=== PATIENT | male | born 1945 | race Caucasian/White ===

== ENCOUNTER 2017-11-20 07:34 | Inpatient (IN) ==
--- NOTE | 2017-11-20 08:09 | ED ---
HPI General Chief complaint: Skin/Abscess/Foreign Body Stated complaint: skin Time Seen by Provider: 11/20/17 07:51 Source: patient and old records reviewed Mode of arrival: ambulatory Limitations: no limitations History of Present Illness HPI narrative: 71-year-old male presents to the emergency department for evaluation of "cellulitis to my buttock". Patient states that yesterday, he noticed an area of erythema to his left buttock. He states it is warm to palpation. Reports fever of 100 this morning. Patient states that he had the same issue in September. He was treated with Bactrim and Keflex and the symptoms resolved. Patient states he has a history of a left hip replacement. He he denies any other symptoms or complaints. He does report being diabetic. Moderate severity. Related Data Home Medications Medication Instructions Recorded Confirmed Unable to Obtain Home Meds 11/20/17 11/20/17 Allergies Allergy/AdvReac Type Severity Reaction Status Date / Time adhesive AdvReac Severe SKIN Verified 11/20/17 08:22 BECOMES IRRITATED AND SCARS Review of Systems ROS: all other systems reviewed are negative [facility] Social History Social History Substance History: No History of Abuse Second Hand Smoke Exposure: No Smoking Status: Never smoker How Often Do You Have a Drink Containing Alcohol: Never Recent Travel in [facility] within the Last 8 Weeks: No Recent Out of Country Travel within the Last 8 Weeks: No Exam Narrative Exam Narrative: GENERAL: Well-nourished, well-developed male patient, afebrile. SKIN: Focused skin assessment warm/dry. Patient has area of erythema to the left buttock that crosses over to the right buttock that measures approximately 19 cm x 27 cm that is warm to palpation. No induration or fluctuance noted. Patient has scar from previous left hip replacement with erythema is as well. HEAD: Normocephalic. Atraumatic. EYES: No scleral icterus. No injection or drainage. NECK: Supple, trachea midline. No JVD or lymphadenopathy. CARDIOVASCULAR: Regular rate and rhythm without murmurs, gallops, or rubs. Left pedal pulse is 2+ peer RESPIRATORY: Breath sounds equal bilaterally. No accessory muscle use. Lung sounds are clear to auscultation. GASTROINTESTINAL: Abdomen soft, non-tender, nondistended. MUSCULOSKELETAL: No cyanosis, or edema. Patient has full range of motion left hip. No significant point tenderness over left hip. BACK: No obvious deformity. Course Initial Documented Vital Signs Temperature 97.8 F 11/20/17 07:37 Pulse Rate 96 H 11/20/17 07:37 Respiratory Rate 20 11/20/17 07:37 Blood Pressure 161/68 H 11/20/17 07:37 Pulse Oximetry 96 11/20/17 07:37 Last Documented Vital Signs Temperature 97.8 F 11/20/17 07:37 Pulse Rate 77 11/20/17 09:00 Respiratory Rate 16 11/20/17 09:00 Blood Pressure 142/64 H 11/20/17 09:00 Pulse Oximetry 98 11/20/17 09:00 Medical Decision Making MDM Narrative Medical decision making narrative: 71-year-old male presents to the emergency department for an area of cellulitis to his left buttock that he noticed yesterday. On exam, area of erythema is significant, 19 cm x 27 cm. He is diabetic. IV access obtained. CBC, CMP, lactic acid, blood cultures x2 are ordered and pending. X-ray of the left hip with pelvis is ordered and pending. I do not suspect a septic joint. Patient has full range of motion of the left hip. CBC shows leukocytosis 23.0, neutrophil percentage 92.6. CMP shows slight hyperkalemia 5.2, but slight hemolysis is noted. BUN is 38, creatinine 1.95. Hyperglycemia of 229. Lactic acid is 1.9. X-ray of the left hip with pelvis shows no concerning osseous or soft tissue abnormality. Patient is given normal saline 1 L IV bolus, vancomycin 1 g IV, Zosyn 3.375 g IV. [facility] is paged for admission. Medical Screen Exam Complete: Yes Emergency Medical Condition: Yes Lab Data Result diagrams: 11/20/17 08:05 11/20/17 08:05 Lab Results 11/20/17 11/20/17 11/20/17 Range/Units 08:05 08:05 08:10 WBC 23.0 H (4.0-11.0) th/mm3 RBC 4.60 (4.50-5.90) mil/mm3 Hgb 14.4 (13.0-17.0) gm/dL Hct 41.9 (39.0-51.0) % MCV 90.9 (80.0-100.0) fL MCH 31.3 (27.0-34.0) pg MCHC 34.5 (32.0-36.0) % RDW 14.2 (11.6-17.2) % Plt Count 189 (150-450) th/mm3 MPV 8.1 (7.0-11.0) fL Neut % (Auto) 92.6 H (16.0-70.0) % Lymph % (Auto) 4.0 L (9.0-44.0) % [place] % (Auto) 3.2 (0.0-8.0) % Eos % (Auto) 0.0 (0.0-4.0) % Baso % (Auto) 0.2 (0.0-2.0) % Neut # (Auto) 21.3 H (1.8-7.7) th/mm3 Lymph # (Auto) 0.9 L (1.0-4.8) th/mm3 [place] # (Auto) 0.7 (0.0-0.9) th/mm3 Eos # (Auto) 0.0 (0.0-0.4) th/mm3 Baso # (Auto) 0.1 (0.0-0.2) th/mm3 WBC Differential . Differential Comment Auto diff final Sodium 139 (136-145) meq/L Potassium 5.2 H (3.5-5.1) meq/L Chloride 107 (98-107) meq/L Carbon Dioxide 22.4 (21.0-32.0) meq/L Anion Gap 10 (5-15) meq/L BUN 38 H (7-18) mg/dL Creatinine 1.95 H (0.60-1.30) mg/dL Estimated GFR 34 L (>89) mL/min Random Glucose 229 H (74-106) mg/dL Lactic Acid 1.9 (0.4-2.0) mmol/L Calcium 8.7 (8.5-10.1) mg/dL Total Bilirubin 0.5 (0.2-1.0) mg/dL AST 17 (15-37) U/L ALT 21 (12-78) U/L Alkaline Phosphatase 72 (45-117) U/L Total Protein 7.3 (6.4-8.2) g/dL Albumin 3.9 (3.4-5.0) g/dL Imaging Data Radiologist's impression: Hip X-Ray 11/20/17 08:04 CONCLUSION: Degenerative changes of the lumbar spine. Intact total left hip prosthesis. No concerning osseous or soft tissue abnormality. Discharge Plan Discharge Disposition Patient Disposition: 30 Still Patient Discharge Details Diagnosis: Cellulitis of buttock, left, Sepsis Physicians Team ED Provider: Vladimir Hansen ED Midlevel Provider: Tonya Presley Primary Care Provider: David Benitez Rxs /Orders / Referrals /Forms Prescriptions: No Action Unable to Obtain Home Meds RF: 0 Discharge Interventions Interventions: Vital Signs Last Done: 11/20/17 09:00 Status ED Status: With Doctor
[2017-11-20 08:32] LABS: Baso # (Auto) 0.1 th/mm3 (0.0-0.2); Baso % (Auto) 0.2 % (0.0-2.0); Hematocrit 41.9 % (39.0-51.0); Hemoglobin 14.4 gm/dL (13.0-17.0); Lymph # (Auto) 0.9 th/mm3 (1.0-4.8); Mean Corpuscular HGB Conc 34.5 % (32.0-36.0); Mean Corpuscular Hemoglobin 31.3 pg (27.0-34.0); Mean Corpuscular Volume 90.9 fL (80.0-100.0); Mean Platelet Volume 8.1 fL (7.0-11.0); Mono # (Auto) 0.7 th/mm3 (0.0-0.9); Mono % (Auto) 3.2 % (0.0-8.0); Neut # (Auto) 21.3 th/mm3 (1.8-7.7); Neut % (Auto) 92.6 % (16.0-70.0); Platelet Count 189 th/mm3 (150-450); Red Cell Distribution Width 14.2 % (11.6-17.2)
[2017-11-20] MEDS ORDERED: Piperacil/Tazo 3.375 GM Premix 50 ML IV.SIG ONE (08:43)
[2017-11-20] MEDS ORDERED: Sod Chloride 0.9% Inj 1,000 ML IV.SIG ONE (08:43)
[2017-11-20] MEDS ORDERED: Vancomycin Inj 1,000 MG in Sodium Chlor 0.9% Inj 250 ML IV.SIG ONE ×2 (08:43→13:00)
--- NOTE | 2017-11-20 08:54 | XR ---
EXAM DATE: 11/20/2017 8:04 AM EDT AGE/SEX: 71 years / Male INDICATIONS: Rash. Possible cellulitis. CLINICAL DATA: This is the patient's initial encounter. Patient reports that signs and symptoms have been present for 1 week and indicates a pain score of 6/10. MEDICAL/SURGICAL HISTORY: . Left buttocks swelling and redness. Previous cellulitis on left but tocks. . Left hip replacement. COMPARISON: . FINDINGS: 2 views of the pelvis demonstrate intact surgical hardware of the left hip, stable in appearance from prior exam. There has been removal of the cerclage wire. Osseous structures are intact without evide nce of fracture or demineralization. Degenerative disc changes within the lower lumbar spine. Soft ti ssues are unremarkable. CONCLUSION: Degenerative changes of the lumbar spine. Intact total left hip prosthesis. No concerning osseous or soft tissue abnormality. Electronically signed by: Ingrid Tena MD 11/20/2017 8:52 AM EDT
[2017-11-20 08:56] LABS: Albumin 3.9 g/dL (3.4-5.0); Anion Gap 10 meq/L (5-15); Aspartate Aminotransferase 17 U/L (15-37); Blood Urea Nitrogen 38 mg/dL (7-18); Calcium 8.7 mg/dL (8.5-10.1); Carbon Dioxide 22.4 meq/L (21.0-32.0); Chloride 107 meq/L (98-107); Glomerular Filtration Rate 34 mL/min (>89); Glucose,Random 229 mg/dL (74-106); Sodium 139 meq/L (136-145)
[2017-11-20 09:01] LABS: Alanine Aminotransferase 21 U/L (12-78); Alkaline Phosphatase 72 U/L (45-117); Total Protein 7.3 g/dL (6.4-8.2)
[2017-11-20 09:02] LABS: Potassium 5.2 meq/L (3.5-5.1)
[2017-11-20] MEDS ORDERED: Acetaminophen 325 MG Tablet PO PRN (09:43)
--- NOTE | 2017-11-20 10:14 | P.HP ---
<Jo De Anda W - Last Filed: 11/20/17 19:46> History of Present Illness Primary Care Physician: David Benitez MD Chief Complaint: "cellulitis on my butt" History of Present Illness: This is a 71-year-old male patient with past medical history which includes diabetes mellitus type 2, obstructive sleep apnea, hypertension, hemochromatosis , chronic kidney disease stage III, osteoporosis, obesity with history of bariatric surgery and GERD. Patient presented to the emergency department for evaluation of, "cellulitis of my buttocks." Patient states that yesterday, he noticed an area of erythema to his left buttock. He states it is warm to palpation. Reports fever of 100 this morning. Patient states that he had the same issue in September. He was treated with Bactrim and Keflex and the symptoms resolved. Patient states he has a history of a left hip replacement. He he denies any other symptoms or complaints. He does report being diabetic. Moderate severity. PMH: diabetes mellitus type 2, obstructive sleep apnea, hypertension, hemochromatosis , chronic kidney disease stage III, osteoporosis, obesity PSxH: Gastric sleeve 2012, left hip for hip replacement 2013 FMH: Mother had hypertension and CVA Father had Alzheimer's disease Brother has diabetes Social history: Patient is retired Denies EtOH use Former smoker has a [id number] history - Diagnosis (1) Cellulitis of buttock, left Inpatient Certification: I certify that the inpatient services were ordered in accordance with Medicare regulations governing the order. This includes certification that hospital inpatient services are reasonable and necessary and in the case of services not specified as inpatient-only under 42 CFR 419.22(n), that they are appropriately provided as inpatient services in accordance to with the 2-midnight benchmark under 43 CFR 412.3(e) Estimated Total Length of Stay (Days): 3 Plans for Post Hospital Care: Home Review of Systems All other systems reviewed negative except as stated in HPI PMFSH - History History Provided By: Patient - Tobacco History Second Hand Smoke Exposure: No Tobacco Use In Past 30 Days: No Smoking Status: Never smoker - Alcohol History How Often Do You Have a Drink Containing Alcohol: Never - Substance Use History Substance History: No History of Abuse - Travel History Recent Travel in the [place] Within the Last 8 Weeks: No Recent Travel Out of the Country Within the Last 8 Weeks: No - Immunization History Tetanus Immunization: Unsure Medications and Allergies Allergies Allergy/AdvReac Type Severity Reaction Status Date / Time adhesive AdvReac Severe SKIN Verified 11/20/17 08:22 BECOMES IRRITATED AND SCARS Home Medications Medication Instructions Recorded Confirmed Type diltiazem HCl 300 mg PO DAILY 11/20/17 11/20/17 History glipizide 5 mg PO BID 11/20/17 11/20/17 History ibuprofen 600 mg PO Q8HR PRN 11/20/17 11/20/17 History lisinopril 40 mg PO DAILY 11/20/17 11/20/17 History meloxicam [Mobic] 15 mg PO DAILY 11/20/17 11/20/17 History pantoprazole 40 mg PO DAILY 11/20/17 11/20/17 History tramadol 50 mg PO Q8HR PRN 11/20/17 11/20/17 History Active Medications: Active Medications Acetaminophen (Tylenol) 650 mg PO Q4H PRN PRN Reason: Temp > 100.4 Al Hydroxide/Mg Hydroxide (Milk Of [employer] Liq) 30 ml PO Q12H PRN PRN Reason: Mild Constipation Ondansetron HCl (Zofran Inj) 4 mg IV.PUSH Q6H PRN PRN Reason: NAUSEA OR VOMITING Senna/Docusate Sodium (-Colace) 1 tab PO BID JIMENA Exam Vital signs: Vital Signs 11/20/17 07:37 11/20/17 09:00 Temperature 97.8 F Pulse Rate 96 H 77 Respiratory Rate 20 16 Blood Pressure 161/68 H 142/64 H Pulse Oximetry 96 98 Intake & Output 11/19/17 11/20/17 11/20/17 18:59 06:59 18:59 Intake Total 50 / 50 Balance 50 / 50 Weight 116.573 kg Intake: IV 50 / 50 Zosyn 3.375 GM Premix 50 ML @ 50 / 50 100 mls/hr IV.SIG ONCE ONE Rx#: [id number] Narrative: GENERAL: This is a well-nourished, well-developed patient, in no apparent distress. SKIN: warm erythematous indurated area encompassing most of leg buttock without extension laterally or extension into gluteal fold CARDIOVASCULAR: Regular rate and rhythm RESPIRATORY: Clear to auscultation. Breath sounds equal bilaterally. GASTROINTESTINAL: Abdomen soft, non-tender, nondistended. Normal active bowel sounds MUSCULOSKELETAL: Extremities without clubbing, cyanosis, or edema. NEURO: Alert & Oriented x4 to person, place, time, situation. Moves all ext x4 Results - Labs CBC & Chem 7: 11/20/17 08:05 11/20/17 08:05 Labs: Laboratory Results - last 24 hr 11/20/17 11/20/17 11/20/17 08:05 08:05 08:10 WBC 23.0 H RBC 4.60 Hgb 14.4 Hct 41.9 MCV 90.9 MCH 31.3 MCHC 34.5 RDW 14.2 Plt Count 189 MPV 8.1 Neut % (Auto) 92.6 H Lymph % (Auto) 4.0 L [place] % (Auto) 3.2 Eos % (Auto) 0.0 Baso % (Auto) 0.2 Neut # (Auto) 21.3 H Lymph # (Auto) 0.9 L [place] # (Auto) 0.7 Eos # (Auto) 0.0 Baso # (Auto) 0.1 WBC Differential . Differential Comment Auto diff final Sodium 139 Potassium 5.2 H Chloride 107 Carbon Dioxide 22.4 Anion Gap 10 BUN 38 H Creatinine 1.95 H Estimated GFR 34 L Random Glucose 229 H Lactic Acid 1.9 Calcium 8.7 Total Bilirubin 0.5 AST 17 ALT 21 Alkaline Phosphatase 72 Total Protein 7.3 Albumin 3.9 - Imaging Impressions Hip X-Ray 11/20/17 08:04 CONCLUSION: Degenerative changes of the lumbar spine. Intact total left hip prosthesis. No concerning osseous or soft tissue abnormality. Caprini VTE Risk Assessment Caprini VTE Risk Assessment: No/Low Risk (score <= 1) Caprini Risk Assessment Model: Point Value = 1 Point Value = 2 Point Value = 3 Point Value = 5 Age 41-60 Minor surgery BMI > 25 kg/m2 Swollen legs Varicose veins or History of unexplained or recurrent spontaneous Oral contraceptives or hormone replacement Sepsis (< 1 month) Serious lung disease, including pneumonia (< 1 month) Abnormal pulmonary function Acute myocardial infarction Congestive heart failure (< 1 month) History of inflammatory bowel disease Medical patient at bed rest Age 61-74 Arthroscopic surgery Major open surgery (> 45 min) Laparoscopic surgery (> 45 min) Malignancy Confined to bed (> 72 hours) Immobilizing plaster cast Central venous access Age >= 75 History of VTE Family history of VTE Factor V Leiden Prothrombin [id number] Lupus anticoagulant Anticardiolipin antibodies Elevated serum homocysteine Heparin-induced thrombocytopenia Other congenital or acquired thrombophilia Stroke (< 1 month) Elective arthroplasty Hip, pelvis, or leg fracture Acute spinal cord injury (< 1 month) Prophylaxis Regimen: Total Risk Factor Score Risk Level Prophylaxis Regimen 0-1 Low Early ambulation 2 Moderate Order ONE of the following: *Sequential Compression Device (SCD) *Heparin 5000 units SQ BID 3-4 Higher Order ONE of the following medications: *Heparin 5000 units SQ TID *Enoxaparin/Lovenox 40 mg SQ daily (WT < 150 kg, CrCl > 30 mL/min) *Enoxaparin/Lovenox 30 mg SQ daily (WT < 150 kg, CrCl > 10-29 mL/min) *Enoxaparin/Lovenox 30 mg SQ BID (WT < 150 kg, CrCl > 30 mL/min) AND/OR *Sequential Compression Device (SCD) 5 or more Highest Order ONE of the following medications: *Heparin 5000 units SQ TID (Preferred with Epidurals) *Enoxaparin/Lovenox 40 mg SQ daily (WT < 150 kg, CrCl > 30 mL/min) *Enoxaparin/Lovenox 30 mg SQ daily (WT < 150 kg, CrCl > 10-29 mL/min) *Enoxaparin/Lovenox 30 mg SQ BID (WT < 150 kg, CrCl > 30 mL/min) AND *Sequential Compression Device (SCD) Assessment and Plan - Assessment (1) Cellulitis of buttock, left Code(s): L03.317 - Cellulitis of buttock Status: Acute Plan: This is a 71-year-old male patient with past medical history which includes diabetes mellitus type 2, obstructive sleep apnea, hypertension, hemochromatosis , chronic kidney disease stage III, osteoporosis, obesity with history of bariatric surgery and GERD. Patient presented to the emergency department for evaluation of, "cellulitis of my buttocks." Patient states that yesterday, he noticed an area of erythema to his left buttock. He states it is warm to palpation. Reports fever of 100 this morning. Patient states that he had the same issue in September. He was treated with Bactrim and Keflex and the symptoms resolved. Patient states he has a history of a left hip replacement. He he denies any other symptoms or complaints. He does report being diabetic. Moderate severity. Cellulitis left buttock WBC 23.0, LA 1.9 Hip X-Ray 11/20/17 Degenerative changes of the lumbar spine. Intact total left hip prosthesis. No concerning osseous or soft tissue abnormality. US soft tissue ordered and pending to R/O abscess Continue Zosyn and vancomycin with pharmacy to dose Diabetes mellitus type 2 Hold home Glipizide accu checks ACHS with SSI obstructive sleep apnea Patient may use home CPAP Hypertension Continue home Diltiazem 300mg daily and lisinopril 40 mg daily GERD Continue home pantoprazole Hemochromatosis Hx appears stable Hgb 14.4 Chronic kidney disease stage III Avoid nephrotoxic agents monitor labs DVT prophylaxis with SCDs <Sly Sheffield - Last Filed: 11/26/17 09:55> History of Present Illness Primary Care Physician: David Benitez MD - Diagnosis (1) Cellulitis of buttock, left Inpatient Certification: I certify that the inpatient services were ordered in accordance with Medicare regulations governing the order. This includes certification that hospital inpatient services are reasonable and necessary and in the case of services not specified as inpatient-only under 42 CFR 419.22(n), that they are appropriately provided as inpatient services in accordance to with the 2-midnight benchmark under 43 CFR 412.3(e) Medications and Allergies Active Medications: Active Medications Acetaminophen (Tylenol) 650 mg PO Q4H PRN PRN Reason: Temp > 100.4 Al Hydroxide/Mg Hydroxide (Milk Of Magnesia Liq) 30 ml PO Q12H PRN PRN Reason: Mild Constipation Dextrose (D50w Vial) 50 ml IV.PUSH UNSCH PRN PRN Reason: PER HYPOGLYCEMIA PROTOCOL Diltiazem HCl (Cardizem Cd 24hr) 300 mg PO DAILY [facility] Last Admin: 11/26/17 09:42 Dose: 300 mg Glucagon (Glucagon Inj) 1 mg OTHER PRN PRN PRN Reason: for Hypoglycemia Protocol Clindamycin/Sodium Chloride (Cleocin 900 Mg/Ns Premix) 900 mg in 50 mls @ 100 mls/hr IV.SIG Q8H [facility] Last Infusion: 11/26/17 06:09 Dose: Infused Insulin Aspart (Novolog Insulin [employer] Sugar Inj) 0 unit SQ ACHS JIMENA; Protocol Last Admin: 11/26/17 09:41 Dose: 2 unit Lactobacillus Acidophilus (Lactinex) 1 tab PO BID [facility] Last Admin: 10/18/18 20:33 Dose: 1 tab Lisinopril (Prinivil) 40 mg PO DAILY [facility] Last Admin: 11/26/17 09:42 Dose: 40 mg Ondansetron HCl (Zofran Inj) 4 mg IV.PUSH Q6H PRN PRN Reason: NAUSEA OR VOMITING Pantoprazole Sodium (Protonix) 40 mg PO DAILY [facility] Last Admin: 11/26/17 09:42 Dose: 40 mg Senna/Docusate Sodium (-Colace) 1 tab PO BID [facility] Last Admin: 11/26/17 09:42 Dose: 1 tab Tramadol HCl (Ultram) 50 mg PO Q8HR PRN PRN Reason: PAIN SCALE 1-10 Last Admin: 11/26/17 05:41 Dose: 50 mg Exam Vital signs: Vital Signs 11/25/17 11:32 11/25/17 16:00 11/25/17 19:52 Temperature 98 F 97.5 F L 97.5 F L Pulse Rate 59 L 56 L 56 L Respiratory Rate 18 17 17 Blood Pressure 167/77 H 160/69 H 156/71 H Pulse Oximetry 97 96 96 11/26/17 00:42 11/26/17 07:12 Temperature 97.8 F 97.2 F L Pulse Rate 54 L 58 L Respiratory Rate 17 16 Blood Pressure 123/72 145/69 H Pulse Oximetry 94 L 97 Intake & Output 11/25/17 11/26/17 11/26/17 18:59 06:59 18:59 Intake Total 2210 / 2210 700 / 700 Balance 2210 / 2210 700 / 700 Weight 115.9 kg Intake: IV 50 / 50 100 / 100 Cleocin 900 mg/NS Premix 900 mg 50 / 50 100 / 100 In 50 ml @ 100 mls/hr IV.SIG Q8H [facility] Rx#:[id number] Oral 2160 / 2160 600 / 600 Other: # Voids 10 3 Date of Last Bowel Movement 11/24/17 11/24/17 Results - Labs CBC & Chem 7: 11/25/17 11:29 11/22/17 03:37 Labs: Laboratory Results - last 24 hr 11/25/17 11/25/17 11/25/17 11:29 12:20 17:20 WBC 8.5 RBC 4.66 Hgb 14.7 Hct 42.7 MCV 91.7 MCH 31.6 MCHC 34.4 RDW 13.6 Plt Count 251 D MPV 8.3 Neut % (Auto) 65.3 Lymph % (Auto) 23.1 [place] % (Auto) 8.1 H Eos % (Auto) 3.1 Baso % (Auto) 0.4 Neut # (Auto) 5.6 Lymph # (Auto) 2.0 [place] # (Auto) 0.7 Eos # (Auto) 0.3 Baso # (Auto) 0.0 WBC Differential . Differential Comment Auto diff final POC Glucose 166 H 143 H 11/25/17 11/26/17 20:38 08:10 WBC RBC Hgb Hct MCV MCH MCHC RDW Plt Count MPV Neut % (Auto) Lymph % (Auto) [place] % (Auto) Eos % (Auto) Baso % (Auto) Neut # (Auto) Lymph # (Auto) [place] # (Auto) Eos # (Auto) Baso # (Auto) WBC Differential Differential Comment POC Glucose 147 H 158 H Caprini VTE Risk Assessment Caprini Risk Assessment Model: Point Value = 1 Point Value = 2 Point Value = 3 Point Value = 5 Age 41-60 Minor surgery BMI > 25 kg/m2 Swollen legs Varicose veins or History of unexplained or recurrent spontaneous Oral contraceptives or hormone replacement Sepsis (< 1 month) Serious lung disease, including pneumonia (< 1 month) Abnormal pulmonary function Acute myocardial infarction Congestive heart failure (< 1 month) History of inflammatory bowel disease Medical patient at bed rest Age 61-74 Arthroscopic surgery Major open surgery (> 45 min) Laparoscopic surgery (> 45 min) Malignancy Confined to bed (> 72 hours) Immobilizing plaster cast Central venous access Age >= 75 History of VTE Family history of VTE Factor V Leiden Prothrombin [id number] Lupus anticoagulant Anticardiolipin antibodies Elevated serum homocysteine Heparin-induced thrombocytopenia Other congenital or acquired thrombophilia Stroke (< 1 month) Elective arthroplasty Hip, pelvis, or leg fracture Acute spinal cord injury (< 1 month) Prophylaxis Regimen: Total Risk Factor Score Risk Level Prophylaxis Regimen 0-1 Low Early ambulation 2 Moderate Order ONE of the following: *Sequential Compression Device (SCD) *Heparin 5000 units SQ BID 3-4 Higher Order ONE of the following medications: *Heparin 5000 units SQ TID *Enoxaparin/Lovenox 40 mg SQ daily (WT < 150 kg, CrCl > 30 mL/min) *Enoxaparin/Lovenox 30 mg SQ daily (WT < 150 kg, CrCl > 10-29 mL/min) *Enoxaparin/Lovenox 30 mg SQ BID (WT < 150 kg, CrCl > 30 mL/min) AND/OR *Sequential Compression Device (SCD) 5 or more Highest Order ONE of the following medications: *Heparin 5000 units SQ TID (Preferred with Epidurals) *Enoxaparin/Lovenox 40 mg SQ daily (WT < 150 kg, CrCl > 30 mL/min) *Enoxaparin/Lovenox 30 mg SQ daily (WT < 150 kg, CrCl > 10-29 mL/min) *Enoxaparin/Lovenox 30 mg SQ BID (WT < 150 kg, CrCl > 30 mL/min) AND *Sequential Compression Device (SCD) Assessment and Plan - Assessment (1) Cellulitis of buttock, left Code(s): L03.317 - Cellulitis of buttock Status: Acute - Attending Attestation The exam, history, and the medical decision-making described in the above note were completed with the assistance of the mid-level provider. I reviewed and agree with the findings presented. I attest that I had a [id number] encounter with the patient on the same day, and personally performed and documented my assessment and findings in the medical record. Patient examined. Assessment and plan formulated with Jo De Anda PA-C. I agree with the above.
[2017-11-20] MEDS ORDERED: Vancomycin Consult Pharmacy OTHER PRN (12:13)
[2017-11-20] MEDS ORDERED: Dextrose 50% in Water 50 ML Vial IV.PUSH PRN (12:14)
[2017-11-20] MEDS: Piperacil/Tazo 2.25 GM Premix 50 ML IV.SIG SCH ×3 (15:26→21:36)
[2017-11-20] MEDS: Insulin NovoLOG Aspart Correctional Sugar Inj SQ SCH ×2 (18:00→21:36)
[2017-11-20] MEDS: Senna/Docusate Sodium 8.6/50 MG Tablet PO SCH ×2 (19:58→21:36)
--- NOTE | 2017-11-20 22:55 | US ---
EXAM DATE: 11/20/2017 12:00 AM EDT AGE/SEX: 71 years / Male INDICATIONS: Left buttocks redness and swelling. CLINICAL DATA: This is the patient's subsequent encounter. Patient reports that signs and symptoms h ave been present for 1 week and indicates a pain score of 3/10. MEDICAL/SURGICAL HISTORY: . Left buttocks redness and swelling. None. [place] [facility] [place]. . FINDINGS: Focused sonographic examination of the left gluteal region was performed in the area of redness and s welling. There is evidence of diffuse soft tissue edema and increased color Doppler flow. No organize d fluid collection is identified. CONCLUSION: Diffuse edema in the left gluteal region. No organized fluid collection identified. Electronically signed by: Lionel Zelaya MD 11/20/2017 10:53 PM EDT
[2017-11-21] MEDS: Piperacil/Tazo 2.25 GM Premix 50 ML IV.SIG SCH ×4 (02:33→20:29)
[2017-11-21 04:28] LABS: Baso % (Auto) 0.2 % (0.0-2.0); Eos % (Auto) 0.3 % (0.0-4.0); Hematocrit 36.6 % (39.0-51.0); Hemoglobin 12.3 gm/dL (13.0-17.0); Lymph # (Auto) 1.5 th/mm3 (1.0-4.8); Lymph % (Auto) 9.7 % (9.0-44.0); Mean Corpuscular HGB Conc 33.7 % (32.0-36.0); Mean Corpuscular Hemoglobin 31.2 pg (27.0-34.0); Mean Corpuscular Volume 92.7 fL (80.0-100.0); Mean Platelet Volume 8.5 fL (7.0-11.0); Mono # (Auto) 0.9 th/mm3 (0.0-0.9); Mono % (Auto) 5.9 % (0.0-8.0); Neut # (Auto) 13.3 th/mm3 (1.8-7.7); Neut % (Auto) 83.9 % (16.0-70.0); Platelet Count 160 th/mm3 (150-450); Red Blood Count 3.95 mil/mm3 (4.50-5.90); Red Cell Distribution Width 13.8 % (11.6-17.2); White Blood Count 15.8 th/mm3 (4.0-11.0)
[2017-11-21 05:01] LABS: Calcium 8.8 mg/dL (8.5-10.1); Carbon Dioxide 24.4 meq/L (21.0-32.0); Potassium 4.4 meq/L (3.5-5.1); Vancomycin,Random 7.4 Comment
[2017-11-21] MEDS ORDERED: Vancomycin Inj 1,750 MG in Sodium Chlor 0.9% Inj 500 ML IV.SIG SCH (09:00)
[2017-11-21] MEDS: Vancomycin Inj 1,500 MG in Sodium Chlor 0.9% Inj 500 ML IV.SIG SCH (09:09)
[2017-11-21] MEDS: Senna/Docusate Sodium 8.6/50 MG Tablet PO SCH ×2 (09:09→20:32)
[2017-11-21] MEDS: Lisinopril 20 MG Tablet PO SCH (09:09)
[2017-11-21] MEDS: Insulin NovoLOG Aspart Correctional Sugar Inj SQ SCH ×4 (09:09→20:29)
[2017-11-21] MEDS: dilTIAZem CD 300 MG Capsule PO SCH (12:53)
--- NOTE | 2017-11-21 17:22 | P.PNIM ---
Subjective Interval history: Follow up: cellulitis of the left buttock Patient reports that he is feeling better today Physical Exam Vital signs: Vital Signs 11/20/17 20:00 11/21/17 00:00 11/21/17 08:00 Temperature 98.1 F 99.1 F 98.5 F Pulse Rate 81 73 73 Respiratory Rate 18 18 16 Blood Pressure 135/69 134/63 119/56 L Pulse Oximetry 94 L 94 L 94 L 11/21/17 12:00 11/21/17 16:00 Temperature 98 F 98.1 F Pulse Rate 66 69 Respiratory Rate 16 16 Blood Pressure 127/58 L 149/65 H Pulse Oximetry 96 98 Intake & Output 11/20/17 11/21/17 11/21/17 18:59 06:59 18:59 Intake Total 2320 / 2320 470 / 470 565 / 565 Balance 2320 / 2320 470 / 470 565 / 565 Weight 116.573 kg 119.7 kg Intake: IV 1600 / 1600 50 / 50 565 / 565 Zosyn 2.25 GM Premix 50 ML @ 50 / 50 50 / 50 50 / 50 100 mls/hr IV.SIG Q6H [facility] Rx#: [id number] Zosyn 3.375 GM Premix 50 ML @ 50 / 50 100 mls/hr IV.SIG ONCE ONE Rx#: [id number] NS Inj 1,000 ML @ Wide Open IV. 1000 / 1000 SIG BOLUS ONE Rx#:[id number] Vancomycin Inj 1,000 MG In NS 500 / 500 Inj 250 ML @ 250 mls/hr IV.SIG ONCE ONE Rx#:[id number] Vancomycin Inj 1,500 MG In NS 515 / 515 Inj 500 ML @ 250 mls/hr IV.SIG Q24H [facility] Rx#:[id number] Oral 720 / 720 420 / 420 Other: # Voids 2 3 Date of Last Bowel Movement 11/20/17 # Bowel Movements 2 0 Narrative: GENERAL: This is a well-nourished, well-developed patient, in no apparent distress. SKIN: erythematous indurated area encompassing most of leg buttock without extension laterally or extension into gluteal fold - improved from yesterday less erythema today CARDIOVASCULAR: Regular rate and rhythm RESPIRATORY: Clear to auscultation. Breath sounds equal bilaterally. GASTROINTESTINAL: Abdomen soft, non-tender, nondistended. Normal active bowel sounds MUSCULOSKELETAL: Extremities without clubbing, cyanosis, or edema. NEURO: Alert & Oriented x4 to person, place, time, situation. Moves all ext x4 Results - Labs CBC & Chem 7: 11/25/17 11:29 11/22/17 03:37 Laboratory Results - last 24 hr 11/20/17 11/21/17 11/21/17 20:01 03:41 03:41 WBC 15.8 H RBC 3.95 L Hgb 12.3 L D Hct 36.6 L MCV 92.7 MCH 31.2 MCHC 33.7 RDW 13.8 Plt Count 160 MPV 8.5 Neut % (Auto) 83.9 H Lymph % (Auto) 9.7 [place] % (Auto) 5.9 Eos % (Auto) 0.3 Baso % (Auto) 0.2 Neut # (Auto) 13.3 H Lymph # (Auto) 1.5 [place] # (Auto) 0.9 Eos # (Auto) 0.0 Baso # (Auto) 0.0 WBC Differential . Differential Comment Auto diff final Sodium 138 Potassium 4.4 D Chloride 108 H Carbon Dioxide 24.4 Anion Gap 6 BUN 32 H Creatinine 1.75 H Estimated GFR 39 L POC Glucose 137 H Random Glucose 112 H D Calcium 8.8 Random Vancomycin 7.4 11/21/17 11/21/17 11/21/17 07:29 11:53 16:29 WBC RBC Hgb Hct MCV MCH MCHC RDW Plt Count MPV Neut % (Auto) Lymph % (Auto) [place] % (Auto) Eos % (Auto) Baso % (Auto) Neut # (Auto) Lymph # (Auto) [place] # (Auto) Eos # (Auto) Baso # (Auto) WBC Differential Differential Comment Sodium Potassium Chloride Carbon Dioxide Anion Gap BUN Creatinine Estimated GFR POC Glucose 134 H 123 H 130 H Random Glucose Calcium Random Vancomycin Microbiology 11/20/17 08:10 Blood - Peripheral Aerobic Blood Culture - Preliminary No growth in 1 day 11/20/17 08:10 Blood - Peripheral Anaerobic Blood Culture - Preliminary No growth in 1 day 11/20/17 08:05 Blood - Peripheral Aerobic Blood Culture - Preliminary No growth in 1 day 11/20/17 08:05 Blood - Peripheral Anaerobic Blood Culture - Preliminary No growth in 1 day - Imaging Impressions Soft Tissue Ultrasound 11/20/17 00:00 CONCLUSION: Diffuse edema in the left gluteal region. No organized fluid collection identified. Assessment and Plan - Assessment (1) Cellulitis of buttock, left Code(s): L03.317 - Cellulitis of buttock Status: Acute Plan: This is a 71-year-old male patient with past medical history which includes diabetes mellitus type 2, obstructive sleep apnea, hypertension, hemochromatosis , chronic kidney disease stage III, osteoporosis, obesity with history of bariatric surgery and GERD. Patient presented to the emergency department for evaluation of, "cellulitis of my buttocks." Patient states that yesterday, he noticed an area of erythema to his left buttock. He states it is warm to palpation. Reports fever of 100 this morning. Patient states that he had the same issue in September. He was treated with Bactrim and Keflex and the symptoms resolved. Patient states he has a history of a left hip replacement. He he denies any other symptoms or complaints. He does report being diabetic. Moderate severity. Cellulitis left buttock WBC 23.0 -> 15.8 (11/21) Hip X-Ray 11/20/17 Degenerative changes of the lumbar spine. Intact total left hip prosthesis. No concerning osseous or soft tissue abnormality. US soft tissue left buttock reviewed and reveals: Diffuse edema in the left gluteal region. No organized fluid collection identified. Continue Zosyn and vancomycin with pharmacy to dose Diabetes mellitus type 2 Hold home Glipizide accu checks ACHS with SSI obstructive sleep apnea Patient may use home CPAP Hypertension Continue home Diltiazem 300mg daily and lisinopril 40 mg daily GERD Continue home pantoprazole Hemochromatosis Hx appears stable Hgb 14.4 Chronic kidney disease stage III Avoid nephrotoxic agents monitor labs DVT prophylaxis with SCDs - Attending Attestation The exam, history, and the medical decision-making described in the above note were completed with the assistance of the mid-level provider. I reviewed and agree with the findings presented. I attest that I had a [id number] encounter with the patient on the same day, and personally performed and documented my assessment and findings in the medical record. Patient examined. Assessment and plan formulated with Jo De Anda PA-C. I agree with the above.
[2017-11-22] MEDS: Piperacil/Tazo 2.25 GM Premix 50 ML IV.SIG SCH ×2 (03:45→08:01)
[2017-11-22 06:29] LABS: Baso % (Auto) 0.3 % (0.0-2.0); Eos # (Auto) 0.2 th/mm3 (0.0-0.4); Eos % (Auto) 1.4 % (0.0-4.0); Hematocrit 39.2 % (39.0-51.0); Lymph # (Auto) 1.9 th/mm3 (1.0-4.8); Lymph % (Auto) 14.8 % (9.0-44.0); Mean Corpuscular HGB Conc 33.1 % (32.0-36.0); Mean Corpuscular Volume 93.6 fL (80.0-100.0); Mean Platelet Volume 8.9 fL (7.0-11.0); Mono % (Auto) 7.9 % (0.0-8.0); Neut # (Auto) 9.8 th/mm3 (1.8-7.7); Neut % (Auto) 75.6 % (16.0-70.0); Platelet Count 177 th/mm3 (150-450); Red Blood Count 4.19 mil/mm3 (4.50-5.90); Red Cell Distribution Width 14.1 % (11.6-17.2); White Blood Count 12.9 th/mm3 (4.0-11.0)
[2017-11-22 07:09] LABS: Calcium 8.8 mg/dL (8.5-10.1); Carbon Dioxide 22.5 meq/L (21.0-32.0)
[2017-11-22] MEDS: Insulin NovoLOG Aspart Correctional Sugar Inj SQ SCH ×4 (07:59→20:12)
[2017-11-22] MEDS: Lisinopril 20 MG Tablet PO SCH (08:01)
[2017-11-22] MEDS: dilTIAZem CD 300 MG Capsule PO SCH (08:01)
[2017-11-22] MEDS: Senna/Docusate Sodium 8.6/50 MG Tablet PO SCH ×2 (08:04→20:12)
[2017-11-22] MEDS: Vancomycin Inj 1,500 MG in Sodium Chlor 0.9% Inj 500 ML IV.SIG SCH (08:45)
--- NOTE | 2017-11-22 08:45 | P.PNIM ---
Subjective Interval history: Follow up left buttock cellulitis patient report the area is, "much less red, pelletizer tender to lay on that area." Offers no other concerns/complaints at this time Physical Exam Vital signs: Vital Signs 11/21/17 12:00 11/21/17 16:00 11/21/17 20:00 Temperature 98 F 98.1 F 98.1 F Pulse Rate 66 69 66 Respiratory Rate 16 16 20 Blood Pressure 127/58 L 149/65 H 111/56 L Pulse Oximetry 96 98 96 11/21/17 23:28 11/22/17 00:00 11/22/17 04:00 Temperature 98.1 F 98.4 F Pulse Rate 54 L 60 Respiratory Rate 20 20 20 Blood Pressure 102/64 121/61 Pulse Oximetry 92 L 95 11/22/17 08:00 Temperature 97.6 F Pulse Rate 56 L Respiratory Rate 16 Blood Pressure 118/56 L Pulse Oximetry 97 Intake & Output 11/21/17 11/22/17 11/22/17 18:59 06:59 18:59 Intake Total 2325 / 2325 900 / 900 Balance 2325 / 2325 900 / 900 Weight 117.7 kg Intake: IV 615 / 615 100 / 100 Zosyn 2.25 GM Premix 50 ML @ 100 / 100 100 / 100 100 mls/hr IV.SIG Q6H [facility] Rx#: [id number] Vancomycin Inj 1,500 MG In NS 515 / 515 Inj 500 ML @ 250 mls/hr IV.SIG Q24H [facility] Rx#:[id number] Oral 1710 / 1710 800 / 800 Other: # Voids 7 3 Date of Last Bowel Movement 11/21/17 # Bowel Movements 2 Narrative: GENERAL: This is a well-nourished, well-developed patient, in no apparent distress. SKIN: erythematous indurated area encompassing most of leg buttock without extension laterally or extension into gluteal fold - continues to improve improve CARDIOVASCULAR: Regular rate and rhythm RESPIRATORY: Clear to auscultation. Breath sounds equal bilaterally. GASTROINTESTINAL: Abdomen soft, non-tender, nondistended. Normal active bowel sounds MUSCULOSKELETAL: Extremities without clubbing, cyanosis, or edema. NEURO: Alert & Oriented x4 to person, place, time, situation. Moves all ext x4 Results - Labs CBC & Chem 7: 11/22/17 03:37 11/22/17 03:37 Laboratory Results - last 24 hr 11/21/17 11/21/17 11/21/17 11:53 16:29 20:25 WBC RBC Hgb Hct MCV MCH MCHC RDW Plt Count MPV Neut % (Auto) Lymph % (Auto) [place] % (Auto) Eos % (Auto) Baso % (Auto) Neut # (Auto) Lymph # (Auto) [place] # (Auto) Eos # (Auto) Baso # (Auto) WBC Differential Differential Comment Sodium Potassium Chloride Carbon Dioxide Anion Gap BUN Creatinine Estimated GFR POC Glucose 123 H 130 H 223 H Random Glucose Calcium 11/22/17 11/22/17 11/22/17 03:37 03:37 07:27 WBC 12.9 H RBC 4.19 L Hgb 13.0 Hct 39.2 MCV 93.6 MCH 31.0 MCHC 33.1 RDW 14.1 Plt Count 177 MPV 8.9 Neut % (Auto) 75.6 H Lymph % (Auto) 14.8 [place] % (Auto) 7.9 Eos % (Auto) 1.4 Baso % (Auto) 0.3 Neut # (Auto) 9.8 H Lymph # (Auto) 1.9 [place] # (Auto) 1.0 H Eos # (Auto) 0.2 Baso # (Auto) 0.0 WBC Differential . Differential Comment Auto diff final Sodium 139 Potassium 5.0 Chloride 107 Carbon Dioxide 22.5 Anion Gap 10 BUN 30 H Creatinine 1.81 H Estimated GFR 37 L POC Glucose 137 H Random Glucose 103 Calcium 8.8 Microbiology 11/20/17 08:10 Blood - Peripheral Aerobic Blood Culture - Preliminary No growth in 1 day 11/20/17 08:10 Blood - Peripheral Anaerobic Blood Culture - Preliminary No growth in 1 day 11/20/17 08:05 Blood - Peripheral Aerobic Blood Culture - Preliminary No growth in 1 day 11/20/17 08:05 Blood - Peripheral Anaerobic Blood Culture - Preliminary No growth in 1 day Assessment and Plan - Assessment (1) Cellulitis of buttock, left Code(s): L03.317 - Cellulitis of buttock Status: Acute Plan: This is a 71-year-old male patient with past medical history which includes diabetes mellitus type 2, obstructive sleep apnea, hypertension, hemochromatosis , chronic kidney disease stage III, osteoporosis, obesity with history of bariatric surgery and GERD. Patient presented to the emergency department for evaluation of, "cellulitis of my buttocks." Patient states that yesterday, he noticed an area of erythema to his left buttock. He states it is warm to palpation. Reports fever of 100 this morning. Patient states that he had the same issue in September. He was treated with Bactrim and Keflex and the symptoms resolved. Patient states he has a history of a left hip replacement. He he denies any other symptoms or complaints. He does report being diabetic. Moderate severity. Cellulitis left buttock WBC 23.0 -> 15.8 (11/21) -> 12.9 (11/22) Hip X-Ray 11/20/17 Degenerative changes of the lumbar spine. Intact total left hip prosthesis. No concerning osseous or soft tissue abnormality. US soft tissue left buttock reviewed and reveals: Diffuse edema in the left gluteal region. No organized fluid collection identified. Continue Zosyn and vancomycin with pharmacy to dose change IV abx to Clindamycin Patient still requiring IV abx at this time Diabetes mellitus type 2 Hold home Glipizide accu checks ACHS with SSI obstructive sleep apnea Patient may use home CPAP Hypertension Continue home Diltiazem 300mg daily and lisinopril 40 mg daily GERD Continue home pantoprazole Hemochromatosis Hx appears stable Hgb 14.4 Chronic kidney disease stage III Avoid nephrotoxic agents monitor labs DVT prophylaxis with SCDs The exam, history, and the medical decision-making described in the above note were completed with the assistance of the mid-level provider. I reviewed and agree with the findings presented. I attest that I had a [id number] encounter with the patient on the same day, and personally performed and documented my assessment and findings in the medical record. cellulitis left buttock. convert to clinda today and reassess tomorrow. If improving then consider dc tomorrow.
[2017-11-22] MEDS: Clindamycin 900 mg/NS Premix 900 MG/50 ML PIGGYBACK IV.SIG SCH ×2 (14:34→20:11)
[2017-11-22] MEDS: Lactobacillus Acidophilus/L. Spores Tablet PO SCH (20:12)
[2017-11-23] MEDS: Clindamycin 900 mg/NS Premix 900 MG/50 ML PIGGYBACK IV.SIG SCH ×3 (06:02→21:04)
[2017-11-23 06:17] LABS: Baso % (Auto) 0.4 % (0.0-2.0); Eos # (Auto) 0.3 th/mm3 (0.0-0.4); Eos % (Auto) 3.5 % (0.0-4.0); Hematocrit 37.5 % (39.0-51.0); Hemoglobin 12.4 gm/dL (13.0-17.0); Lymph # (Auto) 1.6 th/mm3 (1.0-4.8); Mean Corpuscular Hemoglobin 31.1 pg (27.0-34.0); Mean Corpuscular Volume 94.2 fL (80.0-100.0); Mean Platelet Volume 8.3 fL (7.0-11.0); Mono # (Auto) 0.7 th/mm3 (0.0-0.9); Mono % (Auto) 7.8 % (0.0-8.0); Neut % (Auto) 69.3 % (16.0-70.0); Platelet Count 188 th/mm3 (150-450); Red Blood Count 3.98 mil/mm3 (4.50-5.90); Red Cell Distribution Width 13.9 % (11.6-17.2); White Blood Count 8.6 th/mm3 (4.0-11.0)
[2017-11-23] MEDS: Insulin NovoLOG Aspart Correctional Sugar Inj SQ SCH ×4 (08:03→21:10)
[2017-11-23] MEDS: Senna/Docusate Sodium 8.6/50 MG Tablet PO SCH ×2 (08:38→21:04)
[2017-11-23] MEDS: Lactobacillus Acidophilus/L. Spores Tablet PO SCH ×2 (08:38→21:03)
[2017-11-23] MEDS: Lisinopril 20 MG Tablet PO SCH (08:39)
[2017-11-23] MEDS ORDERED: Pharmacy Ordered Lab Info OTHER ONE (08:45)
--- NOTE | 2017-11-23 09:00 | P.PNIM ---
Subjective Interval history: Follow up left buttock cellulitis patient reports that the discomfort in left buttock has improved Offers no other concerns/complaints at this time Physical Exam Vital signs: Vital Signs 11/22/17 12:00 11/22/17 16:00 11/22/17 20:00 Temperature 97.4 F L 97.1 F L 98.0 F Pulse Rate 55 L 51 L 56 L Respiratory Rate 16 18 16 Blood Pressure 136/62 129/60 126/60 Pulse Oximetry 98 97 96 11/23/17 00:00 11/23/17 08:00 Temperature 97.8 F 98.5 F Pulse Rate 54 L 54 L Respiratory Rate 16 18 Blood Pressure 126/64 140/67 Pulse Oximetry 96 97 Intake & Output 11/22/17 11/23/17 11/23/17 18:59 06:59 18:59 Intake Total 2815 / 2815 50 / 50 50 / 50 Balance 2815 / 2815 50 / 50 50 / 50 Weight 118.4 kg Intake: IV 615 / 615 50 / 50 50 / 50 Cleocin 900 mg/NS Premix 900 mg 50 / 50 50 / 50 50 / 50 In 50 ml @ 100 mls/hr IV.SIG Q8H [facility] Rx#:[id number] Zosyn 2.25 GM Premix 50 ML @ 50 / 50 100 mls/hr IV.SIG Q6H [facility] Rx#: [id number] Vancomycin Inj 1,500 MG In NS 515 / 515 Inj 500 ML @ 250 mls/hr IV.SIG Q24H [facility] Rx#:[id number] Oral 2200 / 2200 Other: # Voids 4 2 Date of Last Bowel Movement 11/21/17 11/21/17 # Bowel Movements 1 Narrative: GENERAL: This is a well-nourished, well-developed patient, in no apparent distress. SKIN: erythematous indurated area encompassing most of leg buttock without extension laterally or extension into gluteal fold - continues to improve CARDIOVASCULAR: Regular rate and rhythm RESPIRATORY: Clear to auscultation. Breath sounds equal bilaterally. GASTROINTESTINAL: Abdomen soft, non-tender, nondistended. Normal active bowel sounds MUSCULOSKELETAL: Extremities without clubbing, cyanosis, or edema. NEURO: Alert & Oriented x4 to person, place, time, situation. Moves all ext x4 Results - Labs CBC & Chem 7: 11/23/17 05:15 11/22/17 03:37 Laboratory Results - last 24 hr 11/22/17 11/22/17 11/22/17 11:45 16:36 20:09 WBC RBC Hgb Hct MCV MCH MCHC RDW Plt Count MPV Neut % (Auto) Lymph % (Auto) [place] % (Auto) Eos % (Auto) Baso % (Auto) Neut # (Auto) Lymph # (Auto) [place] # (Auto) Eos # (Auto) Baso # (Auto) WBC Differential Differential Comment POC Glucose 160 H 162 H 158 H 11/23/17 11/23/17 05:15 07:06 WBC 8.6 RBC 3.98 L Hgb 12.4 L Hct 37.5 L MCV 94.2 MCH 31.1 MCHC 33.0 RDW 13.9 Plt Count 188 MPV 8.3 Neut % (Auto) 69.3 Lymph % (Auto) 19.0 [place] % (Auto) 7.8 Eos % (Auto) 3.5 Baso % (Auto) 0.4 Neut # (Auto) 6.0 Lymph # (Auto) 1.6 [place] # (Auto) 0.7 Eos # (Auto) 0.3 Baso # (Auto) 0.0 WBC Differential . Differential Comment Auto diff final POC Glucose 128 H Microbiology 11/20/17 08:10 Blood - Peripheral Aerobic Blood Culture - Preliminary No growth in 2 days 11/20/17 08:10 Blood - Peripheral Anaerobic Blood Culture - Preliminary No growth in 2 days 11/20/17 08:05 Blood - Peripheral Aerobic Blood Culture - Preliminary No growth in 2 days 11/20/17 08:05 Blood - Peripheral Anaerobic Blood Culture - Preliminary No growth in 2 days Assessment and Plan - Assessment (1) Cellulitis of buttock, left Code(s): L03.317 - Cellulitis of buttock Status: Acute Plan: This is a 71-year-old male patient with past medical history which includes diabetes mellitus type 2, obstructive sleep apnea, hypertension, hemochromatosis , chronic kidney disease stage III, osteoporosis, obesity with history of bariatric surgery and GERD. Patient presented to the emergency department for evaluation of, "cellulitis of my buttocks." Patient states that yesterday, he noticed an area of erythema to his left buttock. He states it is warm to palpation. Reports fever of 100 this morning. Patient states that he had the same issue in September. He was treated with Bactrim and Keflex and the symptoms resolved. Patient states he has a history of a left hip replacement. He he denies any other symptoms or complaints. He does report being diabetic. Moderate severity. Cellulitis left buttock WBC 23.0 -> 15.8 (11/21) -> 12.9 (11/22) -> 8.6 (11/23) Hip X-Ray 11/20/17 Degenerative changes of the lumbar spine. Intact total left hip prosthesis. No concerning osseous or soft tissue abnormality. US soft tissue left buttock reviewed and reveals: Diffuse edema in the left gluteal region. No organized fluid collection identified. Continue Zosyn and vancomycin with pharmacy to dose continue IV abx to Clindamycin Diabetes mellitus type 2 Hold home Glipizide accu checks ACHS with SSI obstructive sleep apnea Patient may use home CPAP Hypertension Continue home Diltiazem 300mg daily and lisinopril 40 mg daily GERD Continue home pantoprazole Hemochromatosis Hx appears stable Hgb 14.4 Chronic kidney disease stage III Avoid nephrotoxic agents monitor labs DVT prophylaxis with SCDs The exam, history, and the medical decision-making described in the above note were completed with the assistance of the mid-level provider. I reviewed and agree with the findings presented. I attest that I had a [id number] encounter with the patient on the same day, and personally performed and documented my assessment and findings in the medical record. less right buttock pain and wbc trending down. pt converted to clinda yesterday and unfortunately some spread of redness beyond the ink lines previously drawn. will recheck later today and adjust abx if still spreading.
[2017-11-23] MEDS: dilTIAZem CD 300 MG Capsule PO SCH (09:52)
[2017-11-24] MEDS: Clindamycin 900 mg/NS Premix 900 MG/50 ML PIGGYBACK IV.SIG SCH ×3 (05:50→20:16)
[2017-11-24] MEDS: Insulin NovoLOG Aspart Correctional Sugar Inj SQ SCH ×4 (09:43→20:22)
[2017-11-24] MEDS: Lisinopril 20 MG Tablet PO SCH (09:43)
[2017-11-24] MEDS: dilTIAZem CD 300 MG Capsule PO SCH (09:43)
[2017-11-24] MEDS ORDERED: Pharmacy Ordered Lab Info OTHER ONE (09:45)
[2017-11-24] MEDS: Lactobacillus Acidophilus/L. Spores Tablet PO SCH ×2 (09:49→20:16)
[2017-11-24] MEDS: Senna/Docusate Sodium 8.6/50 MG Tablet PO SCH ×2 (09:50→20:16)
--- NOTE | 2017-11-24 10:37 | P.PNIM ---
Subjective Interval history: Pt feels that the buttock cellulitis is less painful today, more itching Pt has been afebrile No new complaints Physical Exam Vital signs: Vital Signs 11/23/17 12:00 11/23/17 16:00 11/23/17 20:00 Temperature 97.4 F L 97.4 F L 97.9 F Pulse Rate 62 55 L 64 Respiratory Rate 18 18 19 Blood Pressure 134/66 161/70 H 156/77 H Pulse Oximetry 97 99 97 11/24/17 00:00 11/24/17 08:00 Temperature 97.6 F 97.4 F L Pulse Rate 60 55 L Respiratory Rate 20 18 Blood Pressure 136/72 159/68 H Pulse Oximetry 96 97 Intake & Output 11/23/17 11/24/17 11/24/17 18:59 06:59 18:59 Intake Total 2300 / 2300 1000 / 1000 Balance 2300 / 2300 1000 / 1000 Weight 118.5 kg Intake: IV 100 / 100 100 / 100 Cleocin 900 mg/NS Premix 900 mg 100 / 100 100 / 100 In 50 ml @ 100 mls/hr IV.SIG Q8H [facility] Rx#:[id number] Oral 2200 / 2200 900 / 900 Other: # Voids 2 3 Date of Last Bowel Movement 11/23/17 # Bowel Movements 1 2 Narrative: GENERAL: This is a well-nourished, well-developed patient, in no apparent distress. SKIN: erythematous indurated area encompassing most of left buttock without extension laterally or extension into gluteal fold - continues to improve CARDIO: Regular RESP: Clear to auscultation bilaterally. ABD: +BS, soft, non-tender, nondistended. EXT: No edema. Results - Labs CBC & Chem 7: 11/23/17 05:15 11/22/17 03:37 Laboratory Results - last 24 hr 11/23/17 11/23/17 11/23/17 11:32 17:40 21:05 POC Glucose 172 H 116 H 193 H 11/24/17 07:57 POC Glucose 138 H Microbiology 11/20/17 08:10 Blood - Peripheral Aerobic Blood Culture - Preliminary No growth in 3 days 11/20/17 08:10 Blood - Peripheral Anaerobic Blood Culture - Preliminary No growth in 3 days 11/20/17 08:05 Blood - Peripheral Aerobic Blood Culture - Preliminary No growth in 3 days 11/20/17 08:05 Blood - Peripheral Anaerobic Blood Culture - Preliminary No growth in 3 days - Imaging Soft Tissue Ultrasound 11/20/17 00:00 CONCLUSION: Diffuse edema in the left gluteal region. No organized fluid collection identified. Hip X-Ray 11/20/17 08:04 CONCLUSION: Degenerative changes of the lumbar spine. Intact total left hip prosthesis. No concerning osseous or soft tissue abnormality. Assessment and Plan - Assessment (1) Cellulitis of buttock, left Code(s): L03.317 - Cellulitis of buttock Status: Acute Plan: This is a 71-year-old male patient with past medical history which includes diabetes mellitus type 2, obstructive sleep apnea, hypertension, hemochromatosis , chronic kidney disease stage III, osteoporosis, obesity with history of bariatric surgery and GERD. Patient presented to the emergency department for evaluation of, "cellulitis of my buttocks." Patient states that yesterday, he noticed an area of erythema to his left buttock. He states it is warm to palpation. Reports fever of 100 this morning. Patient states that he had the same issue in September. He was treated with Bactrim and Keflex and the symptoms resolved. Patient states he has a history of a left hip replacement. He he denies any other symptoms or complaints. He does report being diabetic. Moderate severity. Cellulitis left buttock - WBC 23.0 -> 15.8 (11/21) -> 12.9 (11/22) -> 8.6 (11/23) - Hip X-Ray 11/20/17 Degenerative changes of the lumbar spine. Intact total left hip prosthesis. No concerning osseous or soft tissue abnormality. - US soft tissue left buttock --> Diffuse edema in the left gluteal region. No organized fluid collection identified. - Pt was initially on Zosyn and vancomycin with pharmacy to dose - Abx changed to IV Clindamycin on 11/22 - Pt with continued clinical improvement Diabetes mellitus type 2 - Hold home Glipizide - Accu checks ACHS with SSI Obstructive sleep apnea - Patient may use home CPAP Hypertension - Continue home Diltiazem 300mg daily and lisinopril 40 mg daily GERD - Continue home pantoprazole Hemochromatosis Hx appears stable - Hgb 14.4 Chronic kidney disease stage III - Avoid nephrotoxic agents monitor labs DVT prophylaxis with SCDs The exam, history, and the medical decision-making described in the above note were completed with the assistance of the mid-level provider. I reviewed and agree with the findings presented. I attest that I had a [id number] encounter with the patient on the same day, and personally performed and documented my assessment and findings in the medical record. slow progress and improvement. cont in hospital with iv abx
[2017-11-25] MEDS: Clindamycin 900 mg/NS Premix 900 MG/50 ML PIGGYBACK IV.SIG SCH ×3 (05:42→20:33)
[2017-11-25] MEDS: Insulin NovoLOG Aspart Correctional Sugar Inj SQ SCH ×4 (07:45→20:38)
[2017-11-25] MEDS: Lisinopril 20 MG Tablet PO SCH (08:24)
[2017-11-25] MEDS: dilTIAZem CD 300 MG Capsule PO SCH (08:24)
[2017-11-25] MEDS: Senna/Docusate Sodium 8.6/50 MG Tablet PO SCH ×2 (08:24→20:33)
[2017-11-25] MEDS: Lactobacillus Acidophilus/L. Spores Tablet PO SCH ×2 (08:24→20:33)
--- NOTE | 2017-11-25 10:09 | P.PNIM ---
Subjective Interval history: No new complaints Pt feels there is less pain and redness today. One small area of discomfort on the left lateral thigh Physical Exam Vital signs: Vital Signs 11/24/17 12:00 11/24/17 16:00 11/24/17 20:00 Temperature 97.1 F L 98.1 F 97.4 F L Pulse Rate 58 L 56 L 56 L Respiratory Rate 17 19 19 Blood Pressure 167/69 H 150/60 H 146/67 H Pulse Oximetry 98 100 96 11/24/17 23:41 11/25/17 08:00 Temperature 98.0 F 97.1 F L Pulse Rate 54 L 57 L Respiratory Rate 19 16 Blood Pressure 136/64 134/66 Pulse Oximetry 96 97 Intake & Output 11/24/17 11/25/17 11/25/17 18:59 06:59 18:59 Intake Total 50 / 50 800 / 800 Balance 50 / 50 800 / 800 Weight 118.8 kg Intake: IV 50 / 50 100 / 100 Cleocin 900 mg/NS Premix 900 mg 50 / 50 100 / 100 In 50 ml @ 100 mls/hr IV.SIG Q8H [facility] Rx#:[id number] Oral 700 / 700 Other: # Voids 2 Date of Last Bowel Movement 11/24/17 11/24/17 Narrative: GENERAL: This is a well-nourished, well-developed patient, in no apparent distress. SKIN: Minimally erythematous area lateral left thigh, the area of erythema in the left buttock in improved CARDIO: Regular RESP: Clear to auscultation bilaterally. ABD: +BS, soft, non-tender, nondistended. EXT: No edema. Results - Labs CBC & Chem 7: 11/23/17 05:15 11/22/17 03:37 Laboratory Results - last 24 hr 11/24/17 11/24/17 11/24/17 11:31 16:13 20:22 POC Glucose 131 H 174 H 170 H 11/25/17 07:34 POC Glucose 145 H Microbiology 11/20/17 08:10 Blood - Peripheral Aerobic Blood Culture - Preliminary No growth in 4 days 11/20/17 08:10 Blood - Peripheral Anaerobic Blood Culture - Preliminary No growth in 4 days 11/20/17 08:05 Blood - Peripheral Aerobic Blood Culture - Preliminary No growth in 4 days 11/20/17 08:05 Blood - Peripheral Anaerobic Blood Culture - Preliminary No growth in 4 days Assessment and Plan - Assessment (1) Cellulitis of buttock, left Code(s): L03.317 - Cellulitis of buttock Status: Acute Plan: This is a 71-year-old male patient with past medical history which includes diabetes mellitus type 2, obstructive sleep apnea, hypertension, hemochromatosis , chronic kidney disease stage III, osteoporosis, obesity with history of bariatric surgery and GERD. Patient presented to the emergency department for evaluation of, "cellulitis of my buttocks." Patient states that yesterday, he noticed an area of erythema to his left buttock. He states it is warm to palpation. Reports fever of 100 this morning. Patient states that he had the same issue in September. He was treated with Bactrim and Keflex and the symptoms resolved. Patient states he has a history of a left hip replacement. He he denies any other symptoms or complaints. He does report being diabetic. Moderate severity. Cellulitis left buttock - WBC 23.0 -> 15.8 (11/21) -> 12.9 (11/22) -> 8.6 (11/23) - Hip X-Ray 11/20/17 Degenerative changes of the lumbar spine. Intact total left hip prosthesis. No concerning osseous or soft tissue abnormality. - US soft tissue left buttock --> Diffuse edema in the left gluteal region. No organized fluid collection identified. - Pt was initially on Zosyn and vancomycin with pharmacy to dose - Abx changed to IV Clindamycin on 11/22 - Pt with continued clinical improvement - Given that this is the patients second episode of cellulitis in this same area and with its proximity to his left hip prosthesis (placed in 2013) we will consult ID to give opinion of whether or not further evaluation in warranted to r/o a deeper nidus of infection regarding the hip prosthesis. Diabetes mellitus type 2 - Hold home Glipizide - Accu checks ACHS with SSI Obstructive sleep apnea - Patient may use home CPAP Hypertension - Continue home Diltiazem 300mg daily and lisinopril 40 mg daily GERD - Continue home pantoprazole Hemochromatosis Hx appears stable - Hgb 12 on 11/23 Chronic kidney disease stage III - Avoid nephrotoxic agents monitor labs DVT prophylaxis with SCDs The exam, history, and the medical decision-making described in the above note were completed with the assistance of the mid-level provider. I reviewed and agree with the findings presented. I attest that I had a [id number] encounter with the patient on the same day, and personally performed and documented my assessment and findings in the medical record. slow resolution of left buttock/groin cellulitis. no fever and wbc down. will ask ID to give opinion since this is a recurrence of this infected area and he has hardware in the left hip. Make sure no further wup needed per ID. If not then dc home.
[2017-11-25 12:26] LABS: Baso % (Auto) 0.4 % (0.0-2.0); Eos # (Auto) 0.3 th/mm3 (0.0-0.4); Eos % (Auto) 3.1 % (0.0-4.0); Hematocrit 42.7 % (39.0-51.0); Hemoglobin 14.7 gm/dL (13.0-17.0); Lymph % (Auto) 23.1 % (9.0-44.0); Mean Corpuscular HGB Conc 34.4 % (32.0-36.0); Mean Corpuscular Hemoglobin 31.6 pg (27.0-34.0); Mean Corpuscular Volume 91.7 fL (80.0-100.0); Mean Platelet Volume 8.3 fL (7.0-11.0); Mono # (Auto) 0.7 th/mm3 (0.0-0.9); Mono % (Auto) 8.1 % (0.0-8.0); Neut # (Auto) 5.6 th/mm3 (1.8-7.7); Neut % (Auto) 65.3 % (16.0-70.0); Platelet Count 251 th/mm3 (150-450); Red Blood Count 4.66 mil/mm3 (4.50-5.90); Red Cell Distribution Width 13.6 % (11.6-17.2); White Blood Count 8.5 th/mm3 (4.0-11.0)
--- NOTE | 2017-11-25 13:35 | P.CONID ---
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 he presented with fever, marked erythema and leukocytosis 23K Pt was started on abx He markedly improved and his wbc when down to nl Xray showed normal appearing prosthesis Pt denies pain with weight bearing ,, but c/o tenderness to palpation over the L hip PMH: diabetes mellitus type 2, obstructive sleep apnea, hypertension, hemochromatosis , chronic kidney disease stage III, osteoporosis, obesity PSxH: Gastric sleeve 2012, left hip for hip replacement 2013 FMH: Mother had hypertension and CVA Father had Alzheimer's disease Brother has diabetes Social history: Patient is retired Denies EtOH use Former smoker has a [id number] history Review of Systems All other systems reviewed negative except as stated in HPI PMFSH - History History Provided By: Patient - Tobacco History Second Hand Smoke Exposure: No Tobacco Use In Past 30 Days: No Smoking Status: Never smoker - Alcohol History How Often Do You Have a Drink Containing Alcohol: Never - Substance Use History Substance History: No History of Abuse - Travel History Recent Travel in the [place] Within the Last 8 Weeks: No Recent Travel Out of the Country Within the Last 8 Weeks: No - Immunization History Tetanus Immunization: Unsure Hx Influenza Vaccine This Season: No Medications and Allergies Active Medications: Active Medications Acetaminophen (Tylenol) 650 mg PO Q4H PRN PRN Reason: Temp > 100.4 Al Hydroxide/Mg Hydroxide (Milk Of Magnesia Liq) 30 ml PO Q12H PRN PRN Reason: Mild Constipation Dextrose (D50w Vial) 50 ml IV.PUSH UNSCH PRN PRN Reason: PER HYPOGLYCEMIA PROTOCOL Diltiazem HCl (Cardizem Cd 24hr) 300 mg PO DAILY [facility] Last Admin: 11/25/17 08:24 Dose: 300 mg Glucagon (Glucagon Inj) 1 mg OTHER PRN PRN PRN Reason: for Hypoglycemia Protocol Clindamycin/Sodium Chloride (Cleocin 900 Mg/Ns Premix) 900 mg in 50 mls @ 100 mls/hr IV.SIG Q8H [facility] Last Admin: 11/25/17 12:38 Dose: 100 mls/hr Insulin Aspart (Novolog Insulin Correctional Sugar Inj) 0 unit SQ ACHS [facility]; Protocol Last Admin: 11/25/17 12:38 Dose: 2 unit Lactobacillus Acidophilus (Lactinex) 1 tab PO BID [facility] Last Admin: 11/25/17 08:24 Dose: 1 tab Lisinopril (Prinivil) 40 mg PO DAILY [facility] Last Admin: 11/25/17 08:24 Dose: 40 mg Ondansetron HCl (Zofran Inj) 4 mg IV.PUSH Q6H PRN PRN Reason: NAUSEA OR VOMITING Pantoprazole Sodium (Protonix) 40 mg PO DAILY [facility] Last Admin: 11/25/17 08:24 Dose: 40 mg Senna/Docusate Sodium (-Colace) 1 tab PO BID [facility] Last Admin: 11/25/17 08:24 Dose: Not Given Tramadol HCl (Ultram) 50 mg PO Q8HR PRN PRN Reason: PAIN SCALE 1-10 Last Admin: 11/25/17 12:38 Dose: 50 mg Allergies Allergy/AdvReac Type Severity Reaction Status Date / Time adhesive AdvReac Severe SKIN Verified 11/20/17 08:22 BECOMES IRRITATED AND SCARS Home Medications Medication Instructions Recorded Confirmed Type diltiazem HCl 300 mg PO DAILY 11/20/17 11/20/17 History glipizide 5 mg PO BID 11/20/17 11/20/17 History ibuprofen 600 mg PO Q8HR PRN 11/20/17 11/20/17 History lisinopril 40 mg PO DAILY 11/20/17 11/20/17 History meloxicam [Mobic] 15 mg PO DAILY 11/20/17 11/20/17 History pantoprazole 40 mg PO DAILY 11/20/17 11/20/17 History tramadol 50 mg PO Q8HR PRN 11/20/17 11/20/17 History Exam Vital signs: Vital Signs 11/24/17 16:00 11/24/17 20:00 11/24/17 23:41 Temperature 98.1 F 97.4 F L 98.0 F Pulse Rate 56 L 56 L 54 L Respiratory Rate 19 19 19 Blood Pressure 150/60 H 146/67 H 136/64 Pulse Oximetry 100 96 96 11/25/17 08:00 11/25/17 11:32 Temperature 97.1 F L 98 F Pulse Rate 57 L 59 L Respiratory Rate 16 18 Blood Pressure 134/66 167/77 H Pulse Oximetry 97 97 Intake & Output 11/24/17 11/25/17 11/25/17 18:59 06:59 18:59 Intake Total 50 / 50 800 / 800 Balance 50 / 50 800 / 800 Weight 118.8 kg Intake: IV 50 / 50 100 / 100 Cleocin 900 mg/NS Premix 900 mg 50 / 50 100 / 100 In 50 ml @ 100 mls/hr IV.SIG Q8H [facility] Rx#:[id number] Oral 700 / 700 Other: # Voids 2 Date of Last Bowel Movement 11/24/17 11/24/17 - Constitutional no acute distress, morbidly obese - Routine HEENT Exam Head: Present: normocephalic, atraumatic Eye: Present: EOMI, PERRL ENT: Present: mucous membranes moist, oropharynx clear - Routine Neck Exam Present: supple. Absent: JVD - Routine Cardiovascular Exam Present: RRR, S1, S2. Absent: murmur, gallop, rubs - Routine Abdominal Exam Present: soft, normoactive bowel sounds. Absent: tenderness, distended, organomegaly, mass - Routine Extremities Exam Present: normal capillary refill, tenderness (Over L hip). Absent: cyanosis, clubbing, edema, joint swelling Comments: L hip, buttock faint pale erythema well healed atrophic incision L hip - Routine Skin Exam Present: erythema (L hip, Buttock: very faint). Absent: rash - Routine Neurological Exam Present: alert, oriented X3, CN II-XII intact, moving all extremities, vision grossly intact, hearing grossly intact, normal speech - Routine Psychiatric Exam Present: normal affect, normal thought process, cooperative Results - Labs CBC & Chem 7: 11/25/17 11:29 11/22/17 03:37 Labs: Laboratory Results - last 24 hr 11/24/17 11/24/17 11/25/17 16:13 20:22 07:34 WBC RBC Hgb Hct MCV MCH MCHC RDW Plt Count MPV Neut % (Auto) Lymph % (Auto) [place] % (Auto) Eos % (Auto) Baso % (Auto) Neut # (Auto) Lymph # (Auto) [place] # (Auto) Eos # (Auto) Baso # (Auto) WBC Differential Differential Comment POC Glucose 174 H 170 H 145 H 11/25/17 11/25/17 11:29 12:20 WBC 8.5 RBC 4.66 Hgb 14.7 Hct 42.7 MCV 91.7 MCH 31.6 MCHC 34.4 RDW 13.6 Plt Count 251 D MPV 8.3 Neut % (Auto) 65.3 Lymph % (Auto) 23.1 [place] % (Auto) 8.1 H Eos % (Auto) 3.1 Baso % (Auto) 0.4 Neut # (Auto) 5.6 Lymph # (Auto) 2.0 [place] # (Auto) 0.7 Eos # (Auto) 0.3 Baso # (Auto) 0.0 WBC Differential . Differential Comment Auto diff final POC Glucose 166 H - Imaging Soft Tissue Ultrasound 11/20/17 00:00 CONCLUSION: Diffuse edema in the left gluteal region. No organized fluid collection identified. Hip X-Ray 11/20/17 08:04 CONCLUSION: Degenerative changes of the lumbar spine. Intact total left hip prosthesis. No concerning osseous or soft tissue abnormality. Assessment and Plan - Plan Recurrent L hip, buttock cellulitis - improving markedly Leukocytosis - resolved Ipsilatral hip prsthesis, + tender to palpation in the area - US, Xray negative. cont IV abx anticipate transition to po WBC * cerete study dw Dr Chi
[2017-11-26] MEDS: Clindamycin 900 mg/NS Premix 900 MG/50 ML PIGGYBACK IV.SIG SCH ×3 (05:35→20:49)
--- NOTE | 2017-11-26 09:03 | P.PNIM ---
Subjective Interval history: Pt feeling well today. He is tolerating oral intake Still with mild erythema on the left lateral thigh and tenderness in the lower lateral thigh Afebrile Physical Exam Vital signs: Vital Signs 11/25/17 11:32 11/25/17 16:00 11/25/17 19:52 Temperature 98 F 97.5 F L 97.5 F L Pulse Rate 59 L 56 L 56 L Respiratory Rate 18 17 17 Blood Pressure 167/77 H 160/69 H 156/71 H Pulse Oximetry 97 96 96 11/26/17 00:42 11/26/17 07:12 Temperature 97.8 F 97.2 F L Pulse Rate 54 L 58 L Respiratory Rate 17 16 Blood Pressure 123/72 145/69 H Pulse Oximetry 94 L 97 Intake & Output 11/25/17 11/26/17 11/26/17 18:59 06:59 18:59 Intake Total 2210 / 2210 700 / 700 Balance 2210 / 2210 700 / 700 Weight 115.9 kg Intake: IV 50 / 50 100 / 100 Cleocin 900 mg/NS Premix 900 mg 50 / 50 100 / 100 In 50 ml @ 100 mls/hr IV.SIG Q8H [facility] Rx#:[id number] Oral 2160 / 2160 600 / 600 Other: # Voids 10 3 Date of Last Bowel Movement 11/24/17 11/24/17 Narrative: GENERAL: This is a well-nourished, well-developed patient, in no apparent distress. SKIN: Minimally erythematous area lateral left thigh, the area of erythema in the left buttock in improved CARDIO: Regular RESP: Clear to auscultation bilaterally. ABD: +BS, soft, non-tender, nondistended. EXT: No edema. Results - Labs CBC & Chem 7: 11/25/17 11:29 11/22/17 03:37 Laboratory Results - last 24 hr 11/25/17 11/25/17 11/25/17 11:29 12:20 17:20 WBC 8.5 RBC 4.66 Hgb 14.7 Hct 42.7 MCV 91.7 MCH 31.6 MCHC 34.4 RDW 13.6 Plt Count 251 D MPV 8.3 Neut % (Auto) 65.3 Lymph % (Auto) 23.1 [place] % (Auto) 8.1 H Eos % (Auto) 3.1 Baso % (Auto) 0.4 Neut # (Auto) 5.6 Lymph # (Auto) 2.0 [place] # (Auto) 0.7 Eos # (Auto) 0.3 Baso # (Auto) 0.0 WBC Differential . Differential Comment Auto diff final POC Glucose 166 H 143 H 11/25/17 11/26/17 20:38 08:10 WBC RBC Hgb Hct MCV MCH MCHC RDW Plt Count MPV Neut % (Auto) Lymph % (Auto) [place] % (Auto) Eos % (Auto) Baso % (Auto) Neut # (Auto) Lymph # (Auto) [place] # (Auto) Eos # (Auto) Baso # (Auto) WBC Differential Differential Comment POC Glucose 147 H 158 H Microbiology 11/20/17 08:10 Blood - Peripheral Aerobic Blood Culture - Final No growth in 5 days 11/20/17 08:10 Blood - Peripheral Anaerobic Blood Culture - Final No growth in 5 days 11/20/17 08:05 Blood - Peripheral Aerobic Blood Culture - Final No growth in 5 days 11/20/17 08:05 Blood - Peripheral Anaerobic Blood Culture - Final No growth in 5 days Assessment and Plan - Assessment (1) Cellulitis of buttock, left Code(s): L03.317 - Cellulitis of buttock Status: Acute Plan: This is a 71-year-old male patient with past medical history which includes diabetes mellitus type 2, obstructive sleep apnea, hypertension, hemochromatosis , chronic kidney disease stage III, osteoporosis, obesity with history of bariatric surgery and GERD. Patient presented to the emergency department for evaluation of, "cellulitis of my buttocks." Patient states that yesterday, he noticed an area of erythema to his left buttock. He states it is warm to palpation. Reports fever of 100 this morning. Patient states that he had the same issue in September. He was treated with Bactrim and Keflex and the symptoms resolved. Patient states he has a history of a left hip replacement. He he denies any other symptoms or complaints. He does report being diabetic. Moderate severity. Cellulitis left buttock - WBC 23.0 -> 15.8 (11/21) -> 12.9 (11/22) -> 8.6 (11/23) - Hip X-Ray 11/20/17 Degenerative changes of the lumbar spine. Intact total left hip prosthesis. No concerning osseous or soft tissue abnormality. - US soft tissue left buttock --> Diffuse edema in the left gluteal region. No organized fluid collection identified. - Pt was initially on Zosyn and vancomycin with pharmacy to dose - Abx changed to IV Clindamycin on 11/22 - Pt with continued clinical improvement - Given that this is the patients second episode of cellulitis in this same area and with its proximity to his left hip prosthesis (placed in 2013) we will consult ID to give opinion of whether or not further evaluation in warranted to r/o a deeper nidus of infection regarding the hip prosthesis. - Appreciate consult from ID - Tagged WBC scan ordered for today and will be completed tomorrow - Cont. IV Abx at this time. Diabetes mellitus type 2 - Hold home Glipizide - Accu checks ACHS with SSI Obstructive sleep apnea - Patient may use home CPAP Hypertension - Continue home Diltiazem 300mg daily and lisinopril 40 mg daily GERD - Continue home pantoprazole Hemochromatosis Hx appears stable - Hgb 12 on 11/23 Chronic kidney disease stage III - Avoid nephrotoxic agents monitor labs DVT prophylaxis with SCDs The exam, history, and the medical decision-making described in the above note were completed with the assistance of the mid-level provider. I reviewed and agree with the findings presented. I attest that I had a [id number] encounter with the patient on the same day, and personally performed and documented my assessment and findings in the medical record. tagged wbc pending. discussed with ID. plan keflex/doxy on dc
[2017-11-26] MEDS: Insulin NovoLOG Aspart Correctional Sugar Inj SQ SCH ×4 (09:41→20:53)
[2017-11-26] MEDS: Senna/Docusate Sodium 8.6/50 MG Tablet PO SCH ×2 (09:42→20:49)
[2017-11-26] MEDS: dilTIAZem CD 300 MG Capsule PO SCH (09:42)
[2017-11-26] MEDS: Lisinopril 20 MG Tablet PO SCH (09:42)
[2017-11-26] MEDS: Lactobacillus Acidophilus/L. Spores Tablet PO SCH ×2 (11:09→20:49)
[2017-11-26 21:05] VITALS: O2SAT 95
[2017-11-27] MEDS: Clindamycin 900 mg/NS Premix 900 MG/50 ML PIGGYBACK IV.SIG SCH (04:42)
[2017-11-27 07:40] VITALS: PULSE 55
[2017-11-27] MEDS: Insulin NovoLOG Aspart Correctional Sugar Inj SQ SCH ×2 (08:31→12:18)
[2017-11-27] MEDS: dilTIAZem CD 300 MG Capsule PO SCH (08:32)
[2017-11-27] MEDS: Lisinopril 20 MG Tablet PO SCH (08:32)
[2017-11-27] MEDS: Senna/Docusate Sodium 8.6/50 MG Tablet PO SCH (08:32)
[2017-11-27] MEDS: Lactobacillus Acidophilus/L. Spores Tablet PO SCH (08:32)
--- NOTE | 2017-11-27 09:30 | P.PNIM ---
Subjective Interval history: Pt feeling well today He is awaiting the second portion of the tagged WBC scan Physical Exam Vital signs: Vital Signs 11/26/17 11:23 11/26/17 20:00 11/27/17 00:00 Temperature 97.9 F 97.2 F L 97.2 F L Pulse Rate 56 L 57 L 55 L Respiratory Rate 16 18 18 Blood Pressure 144/70 H 147/68 H 129/70 Pulse Oximetry 94 L 95 95 Intake & Output 11/26/17 11/27/17 11/27/17 18:59 06:59 18:59 Intake Total 1850 / 1850 580 / 580 Balance 1850 / 1850 580 / 580 Weight 114 kg Intake: IV 50 / 50 100 / 100 Cleocin 900 mg/NS Premix 900 mg 50 / 50 100 / 100 In 50 ml @ 100 mls/hr IV.SIG Q8H [facility] Rx#:[id number] Oral 1800 / 1800 480 / 480 Other: # Voids 6 2 Date of Last Bowel Movement 11/24/17 11/24/17 11/26/17 Narrative: GENERAL: This is a well-nourished, well-developed patient, in no apparent distress. SKIN: Minimally erythematous area lateral left thigh, the area of erythema in the left buttock in improved CARDIO: Regular RESP: Clear to auscultation bilaterally. ABD: +BS, soft, non-tender, nondistended. EXT: No edema. Results - Labs CBC & Chem 7: 11/25/17 11:29 11/22/17 03:37 Laboratory Results - last 24 hr 11/26/17 11/26/17 11/26/17 11:38 17:14 20:52 POC Glucose 158 H 127 H 168 H 11/27/17 07:40 POC Glucose 215 H Assessment and Plan - Assessment (1) Cellulitis of buttock, left Code(s): L03.317 - Cellulitis of buttock Status: Acute Plan: This is a 71-year-old male patient with past medical history which includes diabetes mellitus type 2, obstructive sleep apnea, hypertension, hemochromatosis , chronic kidney disease stage III, osteoporosis, obesity with history of bariatric surgery and GERD. Patient presented to the emergency department for evaluation of, "cellulitis of my buttocks." Patient states that yesterday, he noticed an area of erythema to his left buttock. He states it is warm to palpation. Reports fever of 100 this morning. Patient states that he had the same issue in September. He was treated with Bactrim and Keflex and the symptoms resolved. Patient states he has a history of a left hip replacement. He he denies any other symptoms or complaints. He does report being diabetic. Moderate severity. Cellulitis left buttock - WBC 23.0 -> 15.8 (11/21) -> 12.9 (11/22) -> 8.6 (11/23) - Hip X-Ray 11/20/17 Degenerative changes of the lumbar spine. Intact total left hip prosthesis. No concerning osseous or soft tissue abnormality. - US soft tissue left buttock --> Diffuse edema in the left gluteal region. No organized fluid collection identified. - Pt was initially on Zosyn and vancomycin with pharmacy to dose - Abx changed to IV Clindamycin on 11/22 - Pt with continued clinical improvement - Given that this is the patients second episode of cellulitis in this same area and with its proximity to his left hip prosthesis (placed in 2013) we will consult ID to give opinion of whether or not further evaluation in warranted to r/o a deeper nidus of infection regarding the hip prosthesis. - Appreciate consult from ID - Tagged WBC scan is pending. - Cont. IV Abx at this time. - The case was discussed with ID. The plan is for Keflex/doxy on dc Diabetes mellitus type 2 - Hold home Glipizide - Accu checks ACHS with SSI Obstructive sleep apnea - Patient may use home CPAP Hypertension - Continue home Diltiazem 300mg daily and lisinopril 40 mg daily GERD - Continue home pantoprazole Hemochromatosis Hx appears stable - Hgb 12 on 11/23 Chronic kidney disease stage III - Avoid nephrotoxic agents monitor labs DVT prophylaxis with SCDs The exam, history, and the medical decision-making described in the above note were completed with the assistance of the mid-level provider. I reviewed and agree with the findings presented. I attest that I had a [id number] encounter with the patient on the same day, and personally performed and documented my assessment and findings in the medical record. wbc scan negative. dc home on 7 days doxy/keflex and f/u pcp for recheck.
[2017-11-27 09:57] VITALS: BP 133/65; RESP 16; TEMP 97.8
--- NOTE | 2017-11-27 10:50 | NM ---
EXAM DATE: 11/26/2017 12:53 PM EDT AGE/SEX: 71 years / Male INDICATIONS: Cellulitis of his left hip/buttock area. CLINICAL DATA: This is the patient's initial encounter. Patient reports that signs and symptoms have been present for 1 day and indicates a pain score of 0/10. MEDICAL/SURGICAL HISTORY: Diabetes mellitus type II. Hypertension. Chronic renal insufficienc y. . Left hip and Gastric sleeve. COMPARISON: No prior exams available for comparison. DOSE: 21 mCi Tc99m Ceretec labeled white blood cells IV PLANAR IMAGIN min 3 hr , 24 hrs SPECT IMAGIN hrs IMAGING: SPECT/CT imaging with fusion was performed. RADIATION DOSE: 9.44 CTDIvol(mGy) TECHNIQUE: Following the in vitro labeling of autologous white cells and reinjection, whole body sca n was performed at the specified times. Imaging was performed at specified times in sagittal, axial and coronal planes. Attenuation correction was performed with computed tomography and both the atten uation correction and non-attenuation corrected data sets were reviewed. FINDINGS: Physiologic bowel activity is present. The patient is status post left hip arthroplasty. Mild activit y is noted in the urinary bladder. The CT demonstrates no destructive change or evidence of fracture. There is no abnormal uptake in the bones to suggest osteomyelitis. Mild degenerative changes are not ed involving the lower facet joints in the lumbar spine. There is mild soft tissue swelling the left lateral buttock and hip region with no visualized abscess. CONCLUSION: 1. No evidence to suggest osteomyelitis. 2. Mild soft tissue swelling over the lateral buttock and left hip region with no visualized abscess . 3. Status post left hip arthroplasty. Electronically signed by: Pauol Quinonez MD 11/27/2017 10:48 AM EDT
--- NOTE | 2017-11-27 13:00 | P.DS ---
Date of admission: 11/20/17 09:54 Primary care physician: David Benitez MD Attending physician on discharge: Vineet Chi Anticipated date of discharge: 11/27/17 Brief History from admission: This is a 71-year-old male patient with past medical history which includes diabetes mellitus type 2, obstructive sleep apnea, hypertension, hemochromatosis , chronic kidney disease stage III, osteoporosis, obesity with history of bariatric surgery and GERD. Patient presented to the emergency department for evaluation of, "cellulitis of my buttocks." Patient states that yesterday, he noticed an area of erythema to his left buttock. He states it is warm to palpation. Reports fever of 100 this morning. Patient states that he had the same issue in September. He was treated with Bactrim and Keflex and the symptoms resolved. Patient states he has a history of a left hip replacement. He he denies any other symptoms or complaints. He does report being diabetic. Moderate severity. PMH: diabetes mellitus type 2, obstructive sleep apnea, hypertension, hemochromatosis , chronic kidney disease stage III, osteoporosis, obesity PSxH: Gastric sleeve 2012, left hip for hip replacement 2013 FMH: Mother had hypertension and CVA Father had Alzheimer's disease Brother has diabetes Social history: Patient is retired Denies EtOH use Former smoker has a [id number] history DS: Diagnosis - Discharge Diagnosis (1) Cellulitis of buttock, left Status: Acute DS: Medications - Discharge Medications Prescriptions: cephalexin [Keflex] 500 mg PO TID 7 Days #21 cap doxycycline hyclate 100 mg PO BID 7 Days #14 tab DS: Summary Hospital Course: Cellulitis left buttock - This is a 71-year-old male patient with past medical history which includes diabetes mellitus type 2, obstructive sleep apnea, hypertension, hemochromatosis , chronic kidney disease stage III, osteoporosis, obesity with history of bariatric surgery and GERD. Patient presented to the emergency department for evaluation of, "cellulitis of my buttocks." Patient states that yesterday, he noticed an area of erythema to his left buttock. He states it is warm to palpation. Reports fever of 100 this morning. Patient states that he had the same issue in September. He was treated with Bactrim and Keflex and the symptoms resolved. Patient states he has a history of a left hip replacement. Pts WBC trended down from 23.0 -> 15.8 (10/14) -> 12.9 (11/22) -> 8.6 (11/23) -- > 8.5 (11/25). Hip X-Ray (11/20/17) noted degenerative changes of the lumbar spine, intact total left hip prosthesis, no concerning osseous or soft tissue abnormality. US soft tissue left buttock noted diffuse edema in the left gluteal region, no organized fluid collection identified. Pt was initially on Zosyn and vancomycin following admission. Abx were changed to IV Clindamycin on 11/22. Pt had slow clinical improvement on the Clindamycin. Given that this was the patients second episode of cellulitis in this same area and with its proximity to his left hip prosthesis (placed in 2013) we consulted ID to give opinion of whether or not further evaluation in warranted to r/o a deeper nidus of infection regarding the hip prosthesis. ID agreed that further evaluation was warranted with Tagged WBC scan which was completed on 11/27/17 and noted no evidence to suggest osteomyelitis, mild soft tissue swelling over the lateral buttock and left hip region with no visualized abscess, and status post left hip arthroplasty. The case was discussed with ID and pt will be discharged on Keflex 500mg TID x 7 days and doxy 100mg BID x 7 days. Pt is to followup with his PCP, Dr. Benitez in 1 week. Diabetes mellitus type 2 - Pts Glipizide was held during admission and pt was covered with SSI. Resume home meds upon discharge. Obstructive sleep apnea - Cont. to use home CPAP Hypertension - Continue home Diltiazem 300mg daily and lisinopril 40 mg daily GERD - Continue home pantoprazole Hemochromatosis Hx appears stable - Hgb 14 on 11/25 Chronic kidney disease stage III - Avoid nephrotoxic agents monitor labs - Time Spent with Patient Total time spent providing and/or coordinating discharge services: Greater than 30 minutes - Quality: VTE Deep Vein Thrombosis/Pulmonary Embolism Present on Admission: No Exam Vital signs: Vital Signs 11/26/17 20:00 11/27/17 00:00 11/27/17 08:00 Temperature 97.2 F L 97.2 F L 97.8 F Pulse Rate 57 L 55 L 55 L Respiratory Rate 18 18 16 Blood Pressure 147/68 H 129/70 133/65 Pulse Oximetry 95 95 95 Intake & Output 11/26/17 11/27/17 11/27/17 18:59 06:59 18:59 Intake Total 1850 / 1850 580 / 580 Balance 1850 / 1850 580 / 580 Weight 114 kg Intake: IV 50 / 50 100 / 100 Cleocin 900 mg/NS Premix 900 mg 50 / 50 100 / 100 In 50 ml @ 100 mls/hr IV.SIG Q8H JIMENA Rx#:[id number] Oral 1800 / 1800 480 / 480 Other: # Voids 6 2 Date of Last Bowel Movement 11/24/17 11/24/17 11/26/17 Narrative: GENERAL: This is a well-nourished, well-developed patient, in no apparent distress. SKIN: Minimally erythematous area lower lateral left thigh, the area of erythema in the left buttock in improved CARDIO: Regular RESP: Clear to auscultation bilaterally. ABD: +BS, soft, non-tender, nondistended. EXT: No edema. Results Procedures completed during hospitalization: see above Labs on day of discharge: Labs from last 24 hours 11/27/17 11/27/17 11/26/17 12:10 07:40 20:52 POC Glucose 188 H 215 H 168 H 11/26/17 17:14 POC Glucose 127 H - Impressions ITS Impressions Soft Tissue Ultrasound 11/20/17 00:00 CONCLUSION: Diffuse edema in the left gluteal region. No organized fluid collection identified. Hip X-Ray 11/20/17 08:04 CONCLUSION: Degenerative changes of the lumbar spine. Intact total left hip prosthesis. No concerning osseous or soft tissue abnormality. WBC Scan Nuclear Medicine 11/26/17 00:00 CONCLUSION: 1. No evidence to suggest osteomyelitis. 2. Mild soft tissue swelling over the lateral buttock and left hip region with no visualized abscess. 3. Status post left hip arthroplasty. Discharge Plan - Discharge Disposition Patient Disposition: Discharge Home - Discharge Condition Condition: Stable - Discharge Order Discharge Orders: Discharge Order (Routine); Ordered 11/27/17 Ordered By: Shelbie Woo - Discharge Details Anticipated Discharge Date: 11/27/17 Discharge Comment: Followup with Dr. Benitez in 1 week, call for that appt. - Physicians Team Primary Care Provider: David Benitez Attending Provider: Sly Sheffield Other Providers: [facility] ; Malu Sidhu MD
== END 2017-11-27 13:27 | disposition home or self-care (01) ==
LOC: NEPD 07:34 → NEDA 09:54 → N07 11:45
PROVIDERS: ADMIT Hospitalist; ATTEND Hospitalist

== ENCOUNTER 2018-01-16 04:09 | Inpatient (IN) ==
[2018-01-16] MEDS ORDERED: Vancomycin Inj 1,000 MG in Sodium Chlor 0.9% Inj 250 ML IV.SIG STA (04:55)
[2018-01-16] MEDS ORDERED: Piperacil/Tazo 4.5 GM Premix 4.5 GM/100 ML BAG IV.SIG STA (04:55)
--- NOTE | 2018-01-16 05:02 | ED ---
HPI General Chief complaint: Skin/Abscess/Foreign Body Stated complaint: Medical Time Seen by Provider: 01/16/18 04:46 Source: patient and old records reviewed Mode of arrival: ambulatory Limitations: no limitations History of Present Illness MD complaint: Reports discoloration Onset (ago): hour(s) (0200) Location: Reports buttocks (left) Severity: mild Quality: Reports pruritic Pain Consistency: constant Relieving factors: none Exacerbating factors: none Context: Reports other (h/o same in Nov ) Associated symptoms: Reports denies other symptoms; Denies fever, chills, nausea and vomiting Treatments prior to arrival: Reports none Related Data Home Medications Medication Instructions Recorded Confirmed glipizide 5 mg PO BID 11/20/17 01/16/18 ibuprofen 600 mg PO Q8HR PRN 11/20/17 01/16/18 lisinopril 40 mg PO DAILY 11/20/17 01/16/18 pantoprazole 40 mg PO DAILY 11/20/17 01/16/18 tramadol 50 mg PO Q8HR PRN 11/20/17 01/16/18 aspirin [Aspir-81] 81 mg PO DAILY 01/16/18 01/16/18 cyclobenzaprine 10 mg PO BID 01/16/18 01/16/18 diltiazem HCl [Cartia XT] 300 mg PO DAILY 01/16/18 01/16/18 docusate sodium [Colace] 100 mg PO DAILY 01/16/18 01/16/18 meloxicam 15 mg PO DAILY 01/16/18 01/16/18 pravastatin 20 mg PO DAILY 01/16/18 01/16/18 Allergies Allergy/AdvReac Type Severity Reaction Status Date / Time adhesive AdvReac Severe SKIN Verified 11/20/17 08:22 BECOMES IRRITATED AND SCARS Review of Systems ROS: all other systems reviewed are negative [facility] Medical History Medical History Diabetes (Acute) Hypertension (Acute) Surgical History Surgical History History of bariatric surgery (Acute) History of hip replacement (Acute) History of tonsillectomy (Acute) Social History Social History Substance History: No History of Abuse Second Hand Smoke Exposure: No Smoking Status: Former smoker How Often Do You Have a Drink Containing Alcohol: Never Recent Travel in [facility] within the Last 8 Weeks: No Recent Out of Country Travel within the Last 8 Weeks: No Immunization History Tetanus Immunization: Unsure Exam Const General: cooperative, healthy appearing, comfortable, no acute distress, well developed and well groomed Orientation: alert, awake and oriented x3 HENMT Head: normal to inspection, normocephalic and atraumatic Nose: no nasal discharge and no epistaxis Mouth: moist mucous membranes Eyes Conjunctivae: conjunctivae normal Sclera: sclerae normal Pupils: PERRL EOM: EOM intact bilaterally Neck Neck: normal visual inspection and full ROM Chest Chest: normal inspection of the chest Resp Effort & Inspection: normal respiratory effort and able to speak in complete sentences Auscultation: clear to auscultation bilaterally Cardio Rate: regular rate Rhythm: regular rhythm Heart Sounds: no murmurs GI Inspection: non-distended Palpation: soft, no hepatosplenomegaly and nontender Back/Spine/Pelvis Cervical Spine: cervical ROM normal Thoracic/Lumbar Spine: thoraco-lumbar ROM normal Skin General: erythema (The skin of the left buttock is a chay red color. It is not the typical bright red of cellulitis. It is a much deeper red. It is warm to the touch. It is also tender. The patient reports that this is exactly the way it looked in November when he was treated for cellulitis.) Neuro General: alert, awake, oriented x3, moves all extremities and CN's II-XI intact bilaterally Cranial Nerves: other Speech: speech normal Motor: no movement abnormalities noted Extrem General: normal to inspection and full ROM Psych Appearance: grossly normal Mental Status: mental status grossly normal Speech and Movement: speech and movement normal Mood: congruent mood Affect: normal affect Attitude: cooperative Thought Process: normal Thought Content: normal Judgment: judgment good Course Initial Documented Vital Signs Temperature 97.4 F L 01/16/18 04:11 Pulse Rate 90 01/16/18 04:11 Respiratory Rate 16 01/16/18 04:11 Blood Pressure 174/76 H 01/16/18 04:11 Pulse Oximetry 98 01/16/18 04:11 Last Documented Vital Signs Temperature 97.4 F L 01/16/18 04:11 Pulse Rate 86 01/16/18 04:43 Respiratory Rate 16 01/16/18 04:11 Blood Pressure 170/79 H 01/16/18 04:43 Pulse Oximetry 97 01/16/18 05:50 Medical Decision Making [facility] Narrative Medical decision making narrative: This patient presents with the acute onset of redness and warmth of the left buttock. He has a history of previous cellulitis of the buttock. He was treated with Zosyn and vancomycin. That was in November. Septic workup has been initiated. I have ordered Zosyn and vancomycin. I have ordered a CT of his buttock to rule out nec fasc because of the rapidity of the onset of symptoms. Labs have been reviewed. The patient is ready for admission for cellulitis. Medical Screen Exam Complete: Yes Emergency Medical Condition: Yes Differential Diagnosis Differential Diagnosis: My differential diagnosis includes but is not limited to localized wound infection, cellulitis, abscess Lab Data Lab results reviewed: Yes I reviewed the patient's lab results. Result diagrams: 01/16/18 05:50 01/16/18 05:50 Lab Results 01/16/18 01/16/18 01/16/18 Range/Units 05:50 05:50 05:50 WBC 21.5 H (4.0-11.0) th/mm3 RBC 4.83 (4.50-5.90) mil/mm3 Hgb 14.9 (13.0-17.0) gm/dL Hct 44.8 (39.0-51.0) % MCV 92.7 (80.0-100.0) fL MCH 30.9 (27.0-34.0) pg MCHC 33.3 (32.0-36.0) % RDW 13.8 (11.6-17.2) % Plt Count 177 (150-450) th/mm3 MPV 8.4 (7.0-11.0) fL Neut % (Auto) 87.9 H (16.0-70.0) % Lymph % (Auto) 6.9 L (9.0-44.0) % [place] % (Auto) 4.9 (0.0-8.0) % Eos % (Auto) 0.1 (0.0-4.0) % Baso % (Auto) 0.2 (0.0-2.0) % Neut # (Auto) 18.9 H (1.8-7.7) th/mm3 Lymph # (Auto) 1.5 (1.0-4.8) th/mm3 [place] # (Auto) 1.1 H (0.0-0.9) th/mm3 Eos # (Auto) 0.0 (0.0-0.4) th/mm3 Baso # (Auto) 0.0 (0.0-0.2) th/mm3 WBC Differential . Differential Comment Auto diff final Sodium 138 (136-145) meq/L Potassium 4.4 (3.5-5.1) meq/L Chloride 105 (98-107) meq/L Carbon Dioxide 25.4 (21.0-32.0) meq/L Anion Gap 8 (5-15) meq/L BUN 36 H (7-18) mg/dL Creatinine 1.76 H (0.60-1.30) mg/dL Estimated GFR 38 L (>89) mL/min Random Glucose 165 H (74-106) mg/dL Lactic Acid 1.3 (0.4-2.0) mmol/L Calcium 9.1 (8.5-10.1) mg/dL Magnesium 2.0 (1.5-2.5) mg/dL Total Bilirubin 0.5 (0.2-1.0) mg/dL AST 15 (15-37) U/L ALT 20 (12-78) U/L Alkaline Phosphatase 69 (45-117) U/L Total Protein 8.2 (6.4-8.2) g/dL Albumin 4.3 (3.4-5.0) g/dL Imaging Data Radiologist's impression: Hip CT 01/16/18 04:55 CONCLUSION: 1. Subcutaneous edema and skin thickening noted as above. This can be seen with cellulitis. 2. Diverticulosis. Discharge Plan Discharge Disposition Patient Disposition: ED Admit(ED Internal Use Only) Discharge Order Discharge Orders: ED Use Only Admit Order (Routine); Ordered 01/16/18 Ordered By: Pushpa Munroe Discharge Details Diagnosis: Cellulitis of buttock, left Physicians Team ED Provider: Pushpa Munroe Primary Care Provider: David Benitez Rxs /Orders / Referrals /Forms Prescriptions: No Action tramadol 50 mg Tablet 50 mg PO Q8HR PRN (Reason: Pain) RF: 0 pantoprazole 40 mg Tablet,Delayed Release (Dr/Ec) 40 mg PO DAILY RF: 0 ibuprofen 600 mg Tablet 600 mg PO Q8HR PRN (Reason: Pain) RF: 0 lisinopril 40 mg Tablet 40 mg PO DAILY RF: 0 glipizide 5 mg Tablet 5 mg PO BID RF: 0 cyclobenzaprine 10 mg Tablet 10 mg PO BID RF: 0 meloxicam 15 mg Tablet 15 mg PO DAILY RF: 0 aspirin [Aspir-81] 81 mg Tablet,Delayed Release (Dr/Ec) 81 mg PO DAILY RF: 0 diltiazem HCl [Cartia XT] 300 mg Capsule,Extended Release 24hr 300 mg PO DAILY RF: 0 docusate sodium [Colace] 100 mg Capsule 100 mg PO DAILY RF: 0 pravastatin 20 mg Tablet 20 mg PO DAILY RF: 0 Discharge Interventions Interventions: Vital Signs Last Done: 01/16/18 04:43 Status ED Status: With Doctor
--- NOTE | 2018-01-16 05:45 | CT ---
EXAM DATE: 01/16/2018 5:23 AM EST AGE/SEX: 72 years / Male INDICATIONS: Left hip and buttock pain. Possible recent cellulitis. CLINICAL DATA: This is the patient's initial encounter. Patient reports that signs and symptoms have been present for 1 day and indicates a pain score of 7/10. MEDICAL/SURGICAL HISTORY: Diabetes mellitus type II. Hypertension. . Left hip replacement RADIATION DOSE: 65.01 CTDI (mGy) COMPARISON: [facility], US SOFT TISSUE, 11/20/2017. [facility], WBC [facility], WB W SPECT, 11/26/2017. . TECHNIQUE: Multiple contiguous axial images were acquired using a multirow detector CT scanner witho ut contrast. Multiplanar reconstruction was performed in the sagittal and coronal planes. Using aut omated exposure control and adjustment of the mA and/or kV according to patient size, radiation dose was kept as low as reasonably achievable to obtain optimal diagnostic quality images. DICOM format i mage data is available electronically for review and comparison. FINDINGS: Left total hip arthroplasty identified. No fractures are seen. There are degenerative changes of the visualized lumbar spine. Moderate diverticulosis of the sigmoid colon. There is mild subcutaneous yokasta ma along the left gluteal region and upper leg laterally with skin thickening seen. This can be seen with cellulitis. There is no evidence of abscess. CONCLUSION: 1. Subcutaneous edema and skin thickening noted as above. This can be seen with cellulitis. 2. Diverticulosis. Electronically signed by: Darío Browning MD 01/16/2018 5:44 AM EST
[2018-01-16 06:18] LABS: Baso % (Auto) 0.2 % (0.0-2.0); Eos % (Auto) 0.1 % (0.0-4.0); Hematocrit 44.8 % (39.0-51.0); Hemoglobin 14.9 gm/dL (13.0-17.0); Lymph # (Auto) 1.5 th/mm3 (1.0-4.8); Lymph % (Auto) 6.9 % (9.0-44.0); Mean Corpuscular HGB Conc 33.3 % (32.0-36.0); Mean Corpuscular Hemoglobin 30.9 pg (27.0-34.0); Mean Corpuscular Volume 92.7 fL (80.0-100.0); Mean Platelet Volume 8.4 fL (7.0-11.0); Mono # (Auto) 1.1 th/mm3 (0.0-0.9); Mono % (Auto) 4.9 % (0.0-8.0); Neut # (Auto) 18.9 th/mm3 (1.8-7.7); Neut % (Auto) 87.9 % (16.0-70.0); Platelet Count 177 th/mm3 (150-450); Red Blood Count 4.83 mil/mm3 (4.50-5.90); Red Cell Distribution Width 13.8 % (11.6-17.2); White Blood Count 21.5 th/mm3 (4.0-11.0)
[2018-01-16 06:22] LABS: Alanine Aminotransferase 20 U/L (12-78); Albumin 4.3 g/dL (3.4-5.0); Anion Gap 8 meq/L (5-15); Aspartate Aminotransferase 15 U/L (15-37); Blood Urea Nitrogen 36 mg/dL (7-18); Calcium 9.1 mg/dL (8.5-10.1); Carbon Dioxide 25.4 meq/L (21.0-32.0); Chloride 105 meq/L (98-107); Glomerular Filtration Rate 38 mL/min (>89); Glucose,Random 165 mg/dL (74-106); Potassium 4.4 meq/L (3.5-5.1); Sodium 138 meq/L (136-145)
[2018-01-16 06:25] LABS: Alkaline Phosphatase 69 U/L (45-117); Total Protein 8.2 g/dL (6.4-8.2)
[2018-01-16] MEDS ORDERED: Bisacodyl 10 MG Supp RECTAL PRN (07:33)
[2018-01-16] MEDS ORDERED: Acetaminophen 325 MG Tablet PO PRN (07:33)
[2018-01-16] MEDS ORDERED: Dextrose 50% in Water 50 ML Vial IV.PUSH PRN (07:33)
[2018-01-16] MEDS ORDERED: Vancomycin Consult Pharmacy OTHER PRN (07:37)
[2018-01-16] MEDS ORDERED: Vancomycin Inj 500 MG in Sodium Chlor 0.9% Inj 100 ML IV.SIG ONE (08:00)
[2018-01-16] MEDS: Sod Chloride 0.9% Inj 1,000 ML IV.CONT SCH ×3 (10:16→20:56)
[2018-01-16] MEDS: Insulin NovoLOG Aspart Correctional Sugar Inj SQ SCH ×4 (10:18→20:48)
[2018-01-16] MEDS: Enoxaparin Inj 40 MG/0.4 ML Syringe SQ SCH (10:19)
[2018-01-16] MEDS: dilTIAZem CD 300 MG Capsule PO SCH (10:19)
[2018-01-16] MEDS: glipiZIDE 5 MG Tablet PO SCH ×2 (10:21→20:47)
[2018-01-16] MEDS: Senna/Docusate Sodium 8.6/50 MG Tablet PO SCH ×2 (10:22→20:47)
[2018-01-16] MEDS: Lisinopril 20 MG Tablet PO SCH (10:22)
--- NOTE | 2018-01-16 10:41 | P.HPIM ---
History of Present Illness Primary Care Physician: David Benitez MD Chief Complaint: pain, redness and warth left buttock History of Present Illness: This is a 72-year-old male patient with past medical history which includes diabetes mellitus type 2, obstructive sleep apnea , hypertension, hemochromatosis, chronic kidney disease stage III, osteoporosis , obesity with history of bariatric surgery, GERD and recurrent cellulitis of the left buttock. Patient presented to the emergency department for evaluation of, "redness, swelling and warmth," left buttock. Started 0200 . Patient states that he had the same issue in September. He was treated with Bactrim and Keflex and the symptoms resolved. Patient was treated again for left buttock cellulitis in November 2017. US soft tissue left buttock noted diffuse edema in the left gluteal region, no organized fluid collection identified. Pt was initially on Zosyn and vancomycin following admission. Abx were changed to IV Clindamycin on 11/22. Pt had slow clinical improvement on the Clindamycin. Given that this was the patients second episode of cellulitis in this same area and with its proximity to his left hip prosthesis (placed in 2013) we consulted ID to give opinion of whether or not further evaluation in warranted to r/o a deeper nidus of infection regarding the hip prosthesis. ID agreed that further evaluation was warranted with Tagged WBC scan which was completed on 11/27/17 and noted no evidence to suggest osteomyelitis, mild soft tissue swelling over the lateral buttock and left hip region with no visualized abscess, and status post left hip arthroplasty. The case was discussed with ID and pt will be discharged on Keflex 500mg TID x 7 days and doxy 100mg BID x 7 days. Patient states he has a history of a left hip replacement. Patient denies any chest pain, shortness of breath, fevers, chills, N/V/D/C. PMH: diabetes mellitus type 2, obstructive sleep apnea, hypertension, hemochromatosis , chronic kidney disease stage III, osteoporosis, obesity and recurrent left buttock cellulitis PSxH: Gastric sleeve 2012, left hip for hip replacement 2013 FMH: Mother had hypertension and CVA Father had Alzheimer's disease Brother has diabetes Social history: Patient is retired Denies EtOH use Former smoker has a [id number] history Inpatient Certification Inpatient Certification: I certify that the inpatient services were ordered in accordance with Medicare regulations governing the order. This includes certification that hospital inpatient services are reasonable and necessary and in the case of services not specified as inpatient-only under 42 CFR 419.22(n), that they are appropriately provided as inpatient services in accordance to with the 2-midnight benchmark under 43 CFR 412.3(e) Estimated Total Length of Stay (Days): 3 Plans for Post Hospital Care: Home Medications and Allergies Allergies Allergy/AdvReac Type Severity Reaction Status Date / Time adhesive AdvReac Severe SKIN Verified 11/20/17 08:22 BECOMES IRRITATED AND SCARS Home Medications Medication Instructions Recorded Confirmed Type glipizide 5 mg PO BID 11/20/17 01/16/18 History ibuprofen 600 mg PO Q8HR PRN 11/20/17 01/16/18 History lisinopril 40 mg PO DAILY 11/20/17 01/16/18 History pantoprazole 40 mg PO DAILY 11/20/17 01/16/18 History tramadol 50 mg PO Q8HR PRN 11/20/17 01/16/18 History aspirin [Aspir-81] 81 mg PO DAILY 01/16/18 01/16/18 History cyclobenzaprine 10 mg PO BID 01/16/18 01/16/18 History diltiazem HCl [Cartia XT] 300 mg PO DAILY 01/16/18 01/16/18 History docusate sodium [Colace] 100 mg PO DAILY 01/16/18 01/16/18 History meloxicam 15 mg PO DAILY 01/16/18 01/16/18 History pravastatin 20 mg PO DAILY 01/16/18 01/16/18 History Active Medications: Active Medications Acetaminophen (Tylenol) 650 mg PO Q4H PRN PRN Reason: Temp > 100.4 Al Hydroxide/Mg Hydroxide (Milk Of Magnesia Liq) 30 ml PO Q12H PRN PRN Reason: Mild Constipation Aspirin (Ecotrin) 81 mg PO DAILY [facility] Last Admin: 01/16/18 10:22 Dose: 81 mg Bisacodyl (Dulcolax Supp) 10 mg RECTAL DAILY PRN PRN Reason: SEVERE CONSITIPATION Cyclobenzaprine HCl (Flexeril) 10 mg PO BID [facility] Last Admin: 01/16/18 10:22 Dose: 10 mg Dextrose (D50w Vial) 50 ml IV.PUSH UNSCH PRN PRN Reason: PER HYPOGLYCEMIA PROTOCOL Diltiazem HCl (Cardizem Cd 24hr) 300 mg PO DAILY [facility] Last Admin: 01/16/18 10:19 Dose: 300 mg Enoxaparin Sodium (Lovenox Inj) 40 mg SQ Q24H [facility] Last Admin: 01/16/18 10:19 Dose: 40 mg Glipizide (Glucotrol) 5 mg PO BID [facility] Last Admin: 01/16/18 10:21 Dose: 5 mg Glucagon (Glucagon Inj) 1 mg OTHER PRN PRN PRN Reason: for Hypoglycemia Protocol Sodium Chloride (Ns Inj) 1,000 mls @ 100 mls/hr IV.CONT .Q10H [facility] Last Admin: 01/16/18 10:16 Dose: 100 mls/hr Insulin Aspart (Novolog Insulin Correctional Sugar Inj) 0 unit SQ ACHS [facility]; Protocol Last Admin: 01/16/18 10:18 Dose: 1 unit Lactulose (Lactulose Liq) 30 ml PO DAILY PRN PRN Reason: SEVERE CONSITIPATION Lisinopril (Prinivil) 40 mg PO DAILY [facility] Last Admin: 01/16/18 10:22 Dose: 40 mg Ondansetron HCl (Zofran Inj) 4 mg IV.PUSH Q6H PRN PRN Reason: NAUSEA OR VOMITING Pantoprazole Sodium (Protonix) 40 mg PO DAILY [facility] Last Admin: 01/16/18 10:20 Dose: 40 mg Pharmacy Profile Note (Vancomycin Consult Pharmacy) 1 each OTHER UNSCH PRN PRN Reason: Pharmacy to dose Pravastatin Sodium (Pravachol) 20 mg PO DAILY [facility] Last Admin: 01/16/18 10:22 Dose: 20 mg Senna/Docusate Sodium (-Colace) 1 tab PO BID [facility] Last Admin: 01/16/18 10:22 Dose: 1 tab Sennosides (Senokot) 17.2 mg PO Q12H PRN PRN Reason: Moderate Constipation Sodium Chloride (Ns Flush) 2 ml IV.FLUSH BID [facility] Last Admin: 01/16/18 10:23 Dose: 2 ml Sodium Chloride (Ns Flush) 2 ml IV.FLUSH PRN PRN PRN Reason: FLUSH AFTER USING IV ACCESS Physical Exam Vital signs: Last Vital Signs Temp 97.4 F L 01/16/18 04:11 Pulse 78 01/16/18 07:29 Resp 13 01/16/18 07:29 BP 148/67 H 01/16/18 07:29 Pulse Ox 97 01/16/18 07:29 Narrative: GENERAL: This is a well-nourished, well-developed patient, in no apparent distress. SKIN: large area of erythema/purple to left buttock and hip area CARDIOVASCULAR: Regular rate and rhythm RESPIRATORY: Clear to auscultation. Breath sounds equal bilaterally. GASTROINTESTINAL: Abdomen soft, non-tender, nondistended. Normal active bowel sounds MUSCULOSKELETAL: Extremities without clubbing, cyanosis, or edema. NEURO: Alert & Oriented x4 to person, place, time, situation. Moves all ext x4 Results Labs CBC & Chem 7: 01/16/18 05:50 01/16/18 05:50 Caprini VTE Risk Assessment Caprini VTE Risk Assessment: Moderate/High Risk (score >= 2) Caprini Risk Assessment Model: Point Value = 1 Point Value = 2 Point Value = 3 Point Value = 5 Age 41-60 Minor surgery BMI > 25 kg/m2 Swollen legs Varicose veins or History of unexplained or recurrent spontaneous Oral contraceptives or hormone replacement Sepsis (< 1 month) Serious lung disease, including pneumonia (< 1 month) Abnormal pulmonary function Acute myocardial infarction Congestive heart failure (< 1 month) History of inflammatory bowel disease Medical patient at bed rest Age 61-74 Arthroscopic surgery Major open surgery (> 45 min) Laparoscopic surgery (> 45 min) Malignancy Confined to bed (> 72 hours) Immobilizing plaster cast Central venous access Age >= 75 History of VTE Family history of VTE Factor V Leiden Prothrombin [id number] Lupus anticoagulant Anticardiolipin antibodies Elevated serum homocysteine Heparin-induced thrombocytopenia Other congenital or acquired thrombophilia Stroke (< 1 month) Elective arthroplasty Hip, pelvis, or leg fracture Acute spinal cord injury (< 1 month) Prophylaxis Regimen: Total Risk Factor Score Risk Level Prophylaxis Regimen 0-1 Low Early ambulation 2 Moderate Order ONE of the following: *Sequential Compression Device (SCD) *Heparin 5000 units SQ BID 3-4 Higher Order ONE of the following medications: *Heparin 5000 units SQ TID *Enoxaparin/Lovenox 40 mg SQ daily (WT < 150 kg, CrCl > 30 mL/min) *Enoxaparin/Lovenox 30 mg SQ daily (WT < 150 kg, CrCl > 10-29 mL/min) *Enoxaparin/Lovenox 30 mg SQ BID (WT < 150 kg, CrCl > 30 mL/min) AND/OR *Sequential Compression Device (SCD) 5 or more Highest Order ONE of the following medications: *Heparin 5000 units SQ TID (Preferred with Epidurals) *Enoxaparin/Lovenox 40 mg SQ daily (WT < 150 kg, CrCl > 30 mL/min) *Enoxaparin/Lovenox 30 mg SQ daily (WT < 150 kg, CrCl > 10-29 mL/min) *Enoxaparin/Lovenox 30 mg SQ BID (WT < 150 kg, CrCl > 30 mL/min) AND *Sequential Compression Device (SCD) Assessment and Plan Plan This is a 72-year-old male patient with past medical history which includes diabetes mellitus type 2, obstructive sleep apnea, hypertension, hemochromatosis , chronic kidney disease stage III, osteoporosis, obesity with history of bariatric surgery, GERD and recurrent cellulitis of the left buttock. Patient presented to the emergency department for evaluation of, "redness, swelling and warmth," left buttock that started at 0200 01/16/18. Patient states that he had the same issue in September. He was treated with Bactrim and Keflex and the symptoms resolved. Patient was treated again for left buttock cellulitis in November 2017. US soft tissue left buttock noted diffuse edema in the left gluteal region, no organized fluid collection identified. Pt was initially on Zosyn and vancomycin following admission. Abx were changed to IV Clindamycin on 11/22. Pt had slow clinical improvement on the Clindamycin. Given that this was the patients second episode of cellulitis in this same area and with its proximity to his left hip prosthesis (placed in 2013) we consulted ID to give opinion of whether or not further evaluation in warranted to r/o a deeper nidus of infection regarding the hip prosthesis. ID agreed that further evaluation was warranted with Tagged WBC scan which was completed on 11/27/17 and noted no evidence to suggest osteomyelitis, mild soft tissue swelling over the lateral buttock and left hip region with no visualized abscess, and status post left hip arthroplasty. The case was discussed with ID and pt will be discharged on Keflex 500mg TID x 7 days and doxy 100mg BID x 7 days. Patient states he has a history of a left hip replacement. Patient denies any chest pain, shortness of breath, fevers, chills, N/V/D/C. Cellulitis left buttock WBC 21.[address] 01/16/18 1. Subcutaneous edema and skin thickening noted as above. This can be seen with cellulitis. 2. Diverticulosis Patient was started on Vancomyacin and Zosyn Will continue Vanco with pharmacy to dose add fluconozole IV This is the patient's third bout of cellulitis in this area and patient has a prosthesis Consult ID Tramadol as needed for pain Diabetes mellitus type 2 - continue patient's home Glipizide - accuchecks ACHS with SSI. - diabetic diet Obstructive sleep apnea - Cont. to use home CPAP Hypertension - Continue home Diltiazem 300mg daily and lisinopril 40 mg daily GERD - Continue home pantoprazole Hemochromatosis Hx appears stable - Hgb 14.9 01/16 Chronic kidney disease stage III - Avoid nephrotoxic agents monitor labs Consult PT DVT prophylaxis with SCDs
--- NOTE | 2018-01-16 18:10 | P.CONID ---
History of Present Illness Service: Infectious Disease Consult date: 01/16/18 Requesting Physician: Sly Sheffield Reason for Consult: Evaluation and Mment of 3rd recurrent episode of Left buttock area cellulit Primary Care Provider: David Benitez MD Chief Complaint: pain, redness and warth left buttock History of Present Illness: is a 71-year-old white male with past medical history significant for diabetes, recurrent left buttock cellulitis, history of left hip replacement secondary to degenerative disc disease approximately 4 years back. He reports that during that surgery he was told a staple was left behind and it needed removal by a second surgery during the same admission on the surgery. Patient reports having 2 other episodes of cellulitis of the left buttock involving the surgical scar but with no dehiscence noted. During his admission in November 2017 he was seen by Dr. Sidhu of infectious disease and underwent a WBC scan which was reported as normal. Patient received IV vancomycin and Zosyn during hospital and was subsequently transitioned to oral Bactrim and Keflex. Patient reports improvement on this regimen. Patient now presents with sudden onset erythema, tenderness and induration of the left buttock area. He denies any trauma to the area. He denies any itching at the surgical site. He denies wearing any tight clothing that could potentially irritate that area. He denies any other skin lesions on that same side. He reports no change in weightbearing or gait. He denies any night sweats or chills. PMH: diabetes mellitus type 2, obstructive sleep apnea, hypertension, hemochromatosis, chronic kidney disease stage III, osteoporosis, obesity PSxH: Gastric sleeve 2012, left hip for hip replacement 2013 FMH: Mother had hypertension and CVA Father had Alzheimer's disease Brother has diabetes Social history: Patient is retired Denies EtOH use Former smoker has a [id number] history Home with his . [facility] - History History Provided By: Patient - Medical History Medical History: Medical History (Last Reviewed 01/16/18 @ 04:59 by Pushpa Munroe) Diabetes Hypertension - Surgical History Surgical History: Surgical History (Last Reviewed 01/16/18 @ 05:00 by Pushpa Munroe) History of bariatric surgery History of hip replacement History of tonsillectomy - Tobacco History Second Hand Smoke Exposure: No Tobacco Use In Past 30 Days: No Smoking Status: Former smoker - Alcohol History How Often Do You Have a Drink Containing Alcohol: Never - Substance Use History Substance History: No History of Abuse - Travel History Recent Travel in the [place] Within the Last 8 Weeks: No Recent Travel Out of the Country Within the Last 8 Weeks: No - Immunization History Tetanus Immunization: Unsure Hx Influenza Vaccine This Season: No Medications and Allergies Active Medications: Active Medications Acetaminophen (Tylenol) 650 mg PO Q4H PRN PRN Reason: Temp > 100.4 Al Hydroxide/Mg Hydroxide (Milk Of Magnsujata Liq) 30 ml PO Q12H PRN PRN Reason: Mild Constipation Aspirin (Ecotrin) 81 mg PO DAILY [facility] Last Admin: 01/16/18 10:22 Dose: 81 mg Bisacodyl (Dulcolax Supp) 10 mg RECTAL DAILY PRN PRN Reason: SEVERE CONSITIPATION Clonidine HCl (Catapres) 0.1 mg PO Q6H PRN PRN Reason: SYS BP GREATER THAN 170 [facility] Last Admin: 01/16/18 15:19 Dose: 0.1 mg Cyclobenzaprine HCl (Flexeril) 10 mg PO BID [facility] Last Admin: 01/16/18 10:22 Dose: 10 mg Dextrose (D50w Vial) 50 ml IV.PUSH UNSCH PRN PRN Reason: PER HYPOGLYCEMIA PROTOCOL Diltiazem HCl (Cardizem Cd 24hr) 300 mg PO DAILY [facility] Last Admin: 01/16/18 10:19 Dose: 300 mg Enoxaparin Sodium (Lovenox Inj) 40 mg SQ Q24H [facility] Last Admin: 01/16/18 10:19 Dose: 40 mg Glipizide (Glucotrol) 5 mg PO BID [facility] Last Admin: 01/16/18 10:21 Dose: 5 mg Glucagon (Glucagon Inj) 1 mg OTHER PRN PRN PRN Reason: for Hypoglycemia Protocol Sodium Chloride (Ns Inj) 1,000 mls @ 100 mls/hr IV.CONT .Q10H [facility] Last Admin: 01/16/18 17:47 Dose: Not Given Fluconazole (Diflucan 100 Mg Premix Bag) 50 mls @ 50 mls/hr IV.SIG Q24H [facility] Last Infusion: 01/16/18 15:35 Dose: Infused Insulin Aspart (Novolog Insulin Correctional Sugar Inj) 0 unit SQ [facility]; Protocol Last Admin: 01/16/18 17:46 Dose: Not Given Lactulose (Lactulose Liq) 30 ml PO DAILY PRN PRN Reason: SEVERE CONSITIPATION Lisinopril (Prinivil) 40 mg PO DAILY [facility] Last Admin: 01/16/18 10:22 Dose: 40 mg Ondansetron HCl (Zofran Inj) 4 mg IV.PUSH Q6H PRN PRN Reason: NAUSEA OR VOMITING Pantoprazole Sodium (Protonix) 40 mg PO DAILY [facility] Last Admin: 01/16/18 10:20 Dose: 40 mg Pharmacy Profile Note (Vancomycin Consult Pharmacy) 1 each OTHER UNSCH PRN PRN Reason: Pharmacy to dose Pravastatin Sodium (Pravachol) 20 mg PO DAILY [facility] Last Admin: 01/16/18 10:22 Dose: 20 mg Senna/Docusate Sodium (-Colace) 1 tab PO BID [facility] Last Admin: 01/16/18 10:22 Dose: 1 tab Sennosides (Senokot) 17.2 mg PO Q12H PRN PRN Reason: Moderate Constipation Sodium Chloride (Ns Flush) 2 ml IV.FLUSH BID [facility] Last Admin: 01/16/18 10:23 Dose: 2 ml Sodium Chloride (Ns Flush) 2 ml IV.FLUSH PRN PRN PRN Reason: FLUSH AFTER USING IV ACCESS Tramadol HCl (Ultram) 50 mg PO Q8HR PRN PRN Reason: PAIN SCALE 1-10 Last Admin: 01/16/18 15:19 Dose: 50 mg Allergies Allergy/AdvReac Type Severity Reaction Status Date / Time adhesive AdvReac Severe SKIN Verified 11/20/17 08:22 BECOMES IRRITATED AND SCARS Home Medications Medication Instructions Recorded Confirmed Type glipizide 5 mg PO BID 11/20/17 01/16/18 History ibuprofen 600 mg PO Q8HR PRN 11/20/17 01/16/18 History lisinopril 40 mg PO DAILY 11/20/17 01/16/18 History pantoprazole 40 mg PO DAILY 11/20/17 01/16/18 History tramadol 50 mg PO Q8HR PRN 11/20/17 01/16/18 History aspirin [Aspir-81] 81 mg PO DAILY 01/16/18 01/16/18 History cyclobenzaprine 10 mg PO BID 01/16/18 01/16/18 History diltiazem HCl [Cartia XT] 300 mg PO DAILY 01/16/18 01/16/18 History docusate sodium [Colace] 100 mg PO DAILY 01/16/18 01/16/18 History meloxicam 15 mg PO DAILY 01/16/18 01/16/18 History pravastatin 20 mg PO DAILY 01/16/18 01/16/18 History Exam Vital signs: Vital Signs 01/16/18 04:11 01/16/18 04:43 01/16/18 05:50 Temperature 97.4 F L Pulse Rate 90 86 Respiratory Rate 16 Blood Pressure 174/76 H 170/79 H Pulse Oximetry 98 97 97 01/16/18 07:29 01/16/18 12:00 01/16/18 16:00 Temperature 98.8 F 99.2 F Pulse Rate 78 83 75 Respiratory Rate 13 15 14 Blood Pressure 148/67 H 175/75 H 143/65 H Pulse Oximetry 97 96 98 Intake & Output 01/15/18 01/16/18 01/16/18 18:59 06:59 18:59 Intake Total 100 / 100 300 / 300 Balance 100 / 100 300 / 300 Weight 115.666 kg 117.48 kg Intake: IV 100 / 100 300 / 300 Diflucan 100 mg Premix Bag 50 50 / 50 ML @ 50 mls/hr IV.SIG Q24H [facility] Rx#:[id number] Zosyn 4.5 GM Premix 4.5 gm In 100 / 100 100 ml @ 200 mls/hr IV.SIG STAT STA Rx#:[id number] Vancomycin Inj 1,000 MG In NS 250 / 250 Inj 250 ML @ 250 mls/hr IV.SIG STAT STA Rx#:[id number] Other: Date of Last Bowel Movement 01/16/18 Weight On Admission 117.48 kg Narrative: GENERAL: Well-nourished well-developed, not in acute distress SKIN: Cool and dry, no generalized rash HEAD: Atraumatic. Normocephalic. No temporal or scalp tenderness. EYES: Pupils equal round and reactive. Scleral icterus. No injection or drainage. No petechia ENT: Nothing abnormal detected NECK: Trachea midline. Supple, nontender, no meningeal signs. CARDIOVASCULAR: HS audible. RESPIRATORY: Clear to auscultation bilaterally. GASTROINTESTINAL: Abdomen soft nontender. Obese. MUSCULOSKELETAL: Left buttock area with a significant area of induration, tenderness as well as erythema involving area up to the iliac crest and down into his thigh and involving a part of his left buttock cheek. A marker has been used to demarcate this area. NEUROLOGICAL: Alert oriented 3. Nonfocal. Psych cooperative IV line sites ok. Results - Labs CBC & Chem 7: 01/16/18 05:50 01/16/18 05:50 Labs: Laboratory Results - last 24 hr 01/16/18 01/16/18 01/16/18 05:50 05:50 05:50 WBC 21.5 H RBC 4.83 Hgb 14.9 Hct 44.8 MCV 92.7 MCH 30.9 MCHC 33.3 RDW 13.8 Plt Count 177 MPV 8.4 Neut % (Auto) 87.9 H Lymph % (Auto) 6.9 L [place] % (Auto) 4.9 Eos % (Auto) 0.1 Baso % (Auto) 0.2 Neut # (Auto) 18.9 H Lymph # (Auto) 1.5 [place] # (Auto) 1.1 H Eos # (Auto) 0.0 Baso # (Auto) 0.0 WBC Differential . Differential Comment Auto diff final Sodium 138 Potassium 4.4 Chloride 105 Carbon Dioxide 25.4 Anion Gap 8 BUN 36 H Creatinine 1.76 H Estimated GFR 38 L POC Glucose Random Glucose 165 H Lactic Acid 1.3 Calcium 9.1 Magnesium 2.0 Total Bilirubin 0.5 AST 15 ALT 20 Alkaline Phosphatase 69 Total Protein 8.2 Albumin 4.3 01/16/18 01/16/18 01/16/18 09:22 13:09 17:39 WBC RBC Hgb Hct MCV MCH MCHC RDW Plt Count MPV Neut % (Auto) Lymph % (Auto) [place] % (Auto) Eos % (Auto) Baso % (Auto) Neut # (Auto) Lymph # (Auto) [place] # (Auto) Eos # (Auto) Baso # (Auto) WBC Differential Differential Comment Sodium Potassium Chloride Carbon Dioxide Anion Gap BUN Creatinine Estimated GFR POC Glucose 159 H 165 H 105 Random Glucose Lactic Acid Calcium Magnesium Total Bilirubin AST ALT Alkaline Phosphatase Total Protein Albumin - Imaging Impressions Hip CT 01/16/18 04:55 CONCLUSION: 1. Subcutaneous edema and skin thickening noted as above. This can be seen with cellulitis. 2. Diverticulosis. Assessment and Plan - Plan Recurrent, third episode of cellulitis involving the left buttock area including the site of prior surgery for prosthetic joint replacement. Diabetes mellitus type 2 Obstructive sleep apnea Recommendations: Continue vancomycin IV target trough 10-15 Follow creatinine and urine output If patient continues to improve on vancomycin IV he can be transitioned to oral agents such as Zyvox or Bactrim. If patient does not improve he may need broadening of further workup. Follow cultures Follow clinical course Case discussed with patient as well as his spouse in the room Case discussed with RN Case briefly discussed with Dr. Sheffield
[2018-01-17] MEDS: Sod Chloride 0.9% Inj 1,000 ML IV.CONT SCH ×3 (05:30→17:30)
[2018-01-17] MEDS: Enoxaparin Inj 40 MG/0.4 ML Syringe SQ SCH (08:53)
[2018-01-17] MEDS: dilTIAZem CD 300 MG Capsule PO SCH (08:54)
[2018-01-17] MEDS: Lisinopril 20 MG Tablet PO SCH (08:54)
[2018-01-17] MEDS: Senna/Docusate Sodium 8.6/50 MG Tablet PO SCH ×2 (08:54→21:25)
[2018-01-17] MEDS: glipiZIDE 5 MG Tablet PO SCH ×2 (08:54→21:25)
[2018-01-17 08:55] LABS: Baso % (Auto) 0.2 % (0.0-2.0); Eos # (Auto) 0.1 th/mm3 (0.0-0.4); Eos % (Auto) 0.9 % (0.0-4.0); Hematocrit 36.2 % (39.0-51.0); Hemoglobin 12.4 gm/dL (13.0-17.0); Lymph # (Auto) 1.9 th/mm3 (1.0-4.8); Lymph % (Auto) 13.3 % (9.0-44.0); Mean Corpuscular HGB Conc 34.2 % (32.0-36.0); Mean Corpuscular Hemoglobin 31.4 pg (27.0-34.0); Mean Corpuscular Volume 91.8 fL (80.0-100.0); Mean Platelet Volume 8.4 fL (7.0-11.0); Mono % (Auto) 7.2 % (0.0-8.0); Neut # (Auto) 10.9 th/mm3 (1.8-7.7); Neut % (Auto) 78.4 % (16.0-70.0); Platelet Count 136 th/mm3 (150-450); Red Blood Count 3.94 mil/mm3 (4.50-5.90); Red Cell Distribution Width 13.9 % (11.6-17.2); White Blood Count 13.9 th/mm3 (4.0-11.0)
[2018-01-17] MEDS: Insulin NovoLOG Aspart Correctional Sugar Inj SQ SCH ×4 (08:55→21:31)
[2018-01-17 09:15] LABS: Calcium 8.4 mg/dL (8.5-10.1); Potassium 4.1 meq/L (3.5-5.1)
[2018-01-17 09:16] LABS: Vancomycin,Random 4.5 Comment
--- NOTE | 2018-01-17 10:05 | P.PNIM ---
Addendum entered and electronically signed by DEANN Mills 10:08: WBC 21.5 on admission -> 13.9 (01/17) Original Note: Subjective Interval history: Patient reports that left buttock/hip area feels better than yesterday Physical Exam Vital signs: Last Vital Signs Temp 97.5 F L 01/17/18 08:00 Pulse 57 L 01/17/18 08:00 Resp 16 01/17/18 08:00 BP 121/66 01/17/18 08:00 Pulse Ox 98 01/17/18 08:00 Narrative: GENERAL: This is a well-nourished, well-developed patient, in no apparent distress. SKIN: Left buttock area with a significant area of induration, tenderness as well as erythema involving area up to the iliac crest and down into his thigh and involving a part of his left buttock cheek. A marker has been used to demarcate this area. CARDIOVASCULAR: Regular rate and rhythm RESPIRATORY: Clear to auscultation. Breath sounds equal bilaterally. GASTROINTESTINAL: Abdomen soft, non-tender, nondistended. Normal active bowel sounds MUSCULOSKELETAL: Extremities without clubbing, cyanosis, or edema. NEURO: Alert & Oriented x4 to person, place, time, situation. Moves all ext x4 Results Labs CBC & Chem 7: 01/17/18 07:27 01/17/18 07:27 Assessment and Plan Plan This is a 72-year-old male patient with past medical history which includes diabetes mellitus type 2, obstructive sleep apnea, hypertension, hemochromatosis , chronic kidney disease stage III, osteoporosis, obesity with history of bariatric surgery, GERD and recurrent cellulitis of the left buttock. Patient presented to the emergency department for evaluation of, "redness, swelling and warmth," left buttock that started at 0200 01/16/18. Patient states that he had the same issue in September. He was treated with Bactrim and Keflex and the symptoms resolved. Patient was treated again for left buttock cellulitis in November 2017. US soft tissue left buttock noted diffuse edema in the left gluteal region, no organized fluid collection identified. Pt was initially on Zosyn and vancomycin following admission. Abx were changed to IV Clindamycin on 11/22. Pt had slow clinical improvement on the Clindamycin. Given that this was the patients second episode of cellulitis in this same area and with its proximity to his left hip prosthesis (placed in 2013) we consulted ID to give opinion of whether or not further evaluation in warranted to r/o a deeper nidus of infection regarding the hip prosthesis. ID agreed that further evaluation was warranted with Tagged WBC scan which was completed on 11/27/17 and noted no evidence to suggest osteomyelitis, mild soft tissue swelling over the lateral buttock and left hip region with no visualized abscess, and status post left hip arthroplasty. The case was discussed with ID and pt will be discharged on Keflex 500mg TID x 7 days and doxy 100mg BID x 7 days. Patient states he has a history of a left hip replacement. Patient denies any chest pain, shortness of breath, fevers, chills, N/V/D/C. Cellulitis left buttock WBC 21.[address] 01/16/18 1. Subcutaneous edema and skin thickening noted as above. This can be seen with cellulitis. 2. Diverticulosis Patient was started on Vancomyacin and Zosyn Will continue Vanco with pharmacy to dose monitor renal function closely add fluconozole IV This is the patient's third bout of cellulitis in this area and patient has a prosthesis Consult ID, appreciate input Tramadol as needed for pain Diabetes mellitus type 2 - continue patient's home Glipizide - accuchecks ACHS with SSI. - diabetic diet Obstructive sleep apnea - Cont. to use home CPAP Hypertension - Continue home Diltiazem 300mg daily and lisinopril 40 mg daily GERD - Continue home pantoprazole Hemochromatosis Hx appears stable - Hgb 14.9 01/16 Chronic kidney disease stage III - Avoid nephrotoxic agents monitor labs - recheck BMP in AM Consult PT DVT prophylaxis with SCDs Attending Attestation Patient examined. Assessment and plan formulated with Jo De Anda PA-C. I agree with the above. pt with recurrent cellulitis over left buttock 3rd episode. no evidence on prior admission for prosthesic involvement discussed with ID. cont abx. monitor. Progress Note: Quality VTE Deep Vein Thrombosis/Pulmonary Embolism Present on Admission: No
[2018-01-17] MEDS ORDERED: Vancomycin Inj 1,750 MG in Sodium Chlor 0.9% Inj 500 ML IV.SIG ONE (14:00)
--- NOTE | 2018-01-17 17:10 | P.PNID ---
Subjective Remarks: is a 71-year-old white male with past medical history significant for diabetes, recurrent left buttock cellulitis, history of left hip replacement secondary to degenerative disc disease approximately 4 years back. He reports that during that surgery he was told a staple was left behind and it needed removal by a second surgery during the same admission on the surgery. Patient reports having 2 other episodes of cellulitis of the left buttock involving the surgical scar but with no dehiscence noted. During his admission in November 2017 he was seen by Dr. Sidhu of infectious disease and underwent a WBC scan which was reported as normal. Patient received IV vancomycin and Zosyn during hospital and was subsequently transitioned to oral Bactrim and Keflex. Patient reports improvement on this regimen. Patient now presents with sudden onset erythema, tenderness and induration of the left buttock area. He denies any trauma to the area. He denies any itching at the surgical site. He denies wearing any tight clothing that could potentially irritate that area. He denies any other skin lesions on that same side. He reports no change in weightbearing or gait. He denies any night sweats or chills. Overnight events reviewed No fevers No rash No diarrhea Antibiotics: Vanco IV Lines: Lines ok Past Medical History: reviewed Allergies/Adverse Reactions: Allergies adhesive Adverse Reaction (Severe, Verified 11/20/17 08:22) SKIN BECOMES IRRITATED AND SCARS Objective Vital Signs 01/16/18 19:50 01/16/18 20:00 01/17/18 00:00 Temperature 99.2 F 97.8 F Pulse Rate 59 L 67 53 L Respiratory Rate 19 18 Blood Pressure 118/51 L 113/61 Pulse Oximetry 95 96 01/17/18 04:00 01/17/18 08:00 01/17/18 11:43 Temperature 97.8 F 97.5 F L Pulse Rate 59 L 57 L Respiratory Rate 18 16 Blood Pressure 113/62 121/66 Pulse Oximetry 96 98 98 01/17/18 12:00 01/17/18 16:00 Temperature 97.9 F Pulse Rate 57 L Respiratory Rate 18 Blood Pressure 118/68 Pulse Oximetry 97 97 Intake & Output 01/16/18 01/17/18 01/17/18 18:59 06:59 18:59 Intake Total 300 / 300 2360 / 2360 567.5 / 567.5 Balance 300 / 300 2360 / 2360 567.5 / 567.5 Weight 119 kg 120.1 kg Intake: IV 300 / 300 1999 567.5 / 567.5 NS Inj 1,000 ML @ 100 mls/hr IV 1999 .CONT .Q10H JIMENA Rx#:[id number] Diflucan 100 mg Premix Bag 50 50 / 50 50 / 50 ML @ 50 mls/hr IV.SIG Q24H JIMENA Rx#:[id number] Vancomycin Inj 1,000 MG In NS 250 / 250 Inj 250 ML @ 250 mls/hr IV.SIG STAT STA Rx#:[id number] Vancomycin Inj 1,750 MG In NS 517.5 / 517.5 Inj 500 ML @ 250 mls/hr IV.SIG ONCE ONE Rx#:[id number] Oral 0 / 0 360 / 360 Other: # Voids 1 Date of Last Bowel Movement 01/16/18 01/15/18 Weight On Admission 117.48 kg 01/16/18 05:40 Blood - Peripheral Aerobic Blood Culture - Preliminary No growth in 1 day 01/16/18 05:40 Blood - Peripheral Anaerobic Blood Culture - Preliminary No growth in 1 day 01/16/18 05:50 Blood - Peripheral Aerobic Blood Culture - Preliminary No growth in 1 day 01/16/18 05:50 Blood - Peripheral Anaerobic Blood Culture - Preliminary No growth in 1 day Lab - Hematology Results 01/16/18 01/17/18 05:50 07:27 WBC 21.5 H 13.9 H RBC 4.83 3.94 L Hgb 14.9 12.4 L D Hct 44.8 36.2 L MCV 92.7 91.8 MCH 30.9 31.4 MCHC 33.3 34.2 RDW 13.8 13.9 Plt Count 177 136 L MPV 8.4 8.4 Neut % (Auto) 87.9 H 78.4 H Lymph % (Auto) 6.9 L 13.3 Mcintosh % (Auto) 4.9 7.2 Eos % (Auto) 0.1 0.9 Baso % (Auto) 0.2 0.2 Neut # (Auto) 18.9 H 10.9 H Lymph # (Auto) 1.5 1.9 Mcintosh # (Auto) 1.1 H 1.0 H Eos # (Auto) 0.0 0.1 Baso # (Auto) 0.0 0.0 WBC Differential . . Differential Comment Auto diff final Auto diff final Lab - Chemistry Results 01/16/18 01/16/18 01/16/18 05:50 05:50 09:22 Sodium 138 Potassium 4.4 Chloride 105 Carbon Dioxide 25.4 Anion Gap 8 BUN 36 H Creatinine 1.76 H Estimated GFR 38 L POC Glucose 159 H Random Glucose 165 H Lactic Acid 1.3 Calcium 9.1 Magnesium 2.0 Total Bilirubin 0.5 AST 15 ALT 20 Alkaline Phosphatase 69 Total Protein 8.2 Albumin 4.3 01/16/18 01/16/18 01/16/18 13:09 17:39 19:19 Sodium Potassium Chloride Carbon Dioxide Anion Gap BUN Creatinine Estimated GFR POC Glucose 165 H 105 160 H Random Glucose Lactic Acid Calcium Magnesium Total Bilirubin AST ALT Alkaline Phosphatase Total Protein Albumin 01/17/18 01/17/18 01/17/18 07:27 07:50 12:46 Sodium 139 Potassium 4.1 Chloride 108 H Carbon Dioxide 23.0 Anion Gap 8 BUN 36 H Creatinine 2.12 H Estimated GFR 31 L POC Glucose 96 91 Random Glucose 85 Lactic Acid Calcium 8.4 L Magnesium Total Bilirubin AST ALT Alkaline Phosphatase Total Protein Albumin Imaging: ITS Impressions Hip CT 01/16/18 04:55 CONCLUSION: 1. Subcutaneous edema and skin thickening noted as above. This can be seen with cellulitis. 2. Diverticulosis. Physical Exam: GENERAL: Well-nourished well-developed, not in acute distress SKIN: Cool and dry, no generalized rash HEAD: Atraumatic. Normocephalic. No temporal or scalp tenderness. EYES: Pupils equal round and reactive. Scleral icterus. No injection or drainage. No petechia ENT: Nothing abnormal detected NECK: Trachea midline. Supple, nontender, no meningeal signs. CARDIOVASCULAR: HS audible. RESPIRATORY: Clear to auscultation bilaterally. GASTROINTESTINAL: Abdomen soft nontender. Obese. MUSCULOSKELETAL: Left buttock area with a significant area of induration, tenderness as well as erythema involving area up to the iliac crest and down into his thigh and involving a part of his left buttock cheek. A marker has been used to demarcate this area. Slight improvement of buttock side. Induration slightly reduced today. NEUROLOGICAL: Alert oriented 3. Nonfocal. Psych cooperative IV line sites ok. Assessment and Plan - Plan Recurrent, third episode of cellulitis involving the left buttock area including the site of prior surgery for prosthetic joint replacement. Diabetes mellitus type 2 Obstructive sleep apnea Recommendations: Continue vancomycin IV target trough 10-15 Follow creatinine and urine output If patient continues to improve on vancomycin IV he can be transitioned to oral agents such as Zyvox. If patient does not improve he may need broadening of further workup. Follow cultures Follow clinical course Case discussed with patient as well as his spouse in the room Case discussed with RN Case briefly discussed with Dr. Chi. I will be OOT from 01/18/2018 to 01/23/2018. knows this patient from prior admission and will resume care in am.
[2018-01-18 06:01] LABS: Baso % (Auto) 0.2 % (0.0-2.0); Eos # (Auto) 0.3 th/mm3 (0.0-0.4); Eos % (Auto) 2.5 % (0.0-4.0); Hematocrit 36.9 % (39.0-51.0); Hemoglobin 12.6 gm/dL (13.0-17.0); Lymph # (Auto) 1.8 th/mm3 (1.0-4.8); Lymph % (Auto) 16.7 % (9.0-44.0); Mean Corpuscular HGB Conc 34.1 % (32.0-36.0); Mean Corpuscular Hemoglobin 31.5 pg (27.0-34.0); Mean Corpuscular Volume 92.3 fL (80.0-100.0); Mean Platelet Volume 8.9 fL (7.0-11.0); Mono # (Auto) 0.8 th/mm3 (0.0-0.9); Mono % (Auto) 7.7 % (0.0-8.0); Neut # (Auto) 7.9 th/mm3 (1.8-7.7); Neut % (Auto) 72.9 % (16.0-70.0); Platelet Count 139 th/mm3 (150-450); Red Blood Count 3.99 mil/mm3 (4.50-5.90); Red Cell Distribution Width 13.7 % (11.6-17.2); White Blood Count 10.8 th/mm3 (4.0-11.0)
[2018-01-18 06:31] LABS: Carbon Dioxide 23.7 meq/L (21.0-32.0); Potassium 4.4 meq/L (3.5-5.1); Vancomycin,Random 15.6 Comment
[2018-01-18] MEDS: Insulin NovoLOG Aspart Correctional Sugar Inj SQ SCH ×4 (08:40→20:54)
[2018-01-18] MEDS: Enoxaparin Inj 40 MG/0.4 ML Syringe SQ SCH (08:42)
[2018-01-18] MEDS: Senna/Docusate Sodium 8.6/50 MG Tablet PO SCH ×2 (08:43→20:54)
[2018-01-18] MEDS: glipiZIDE 5 MG Tablet PO SCH ×2 (08:43→20:55)
[2018-01-18] MEDS: dilTIAZem CD 300 MG Capsule PO SCH (08:43)
[2018-01-18] MEDS: Lisinopril 20 MG Tablet PO SCH (08:43)
--- NOTE | 2018-01-18 09:47 | P.PNIM ---
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 minimal tendereness. no fluctuance or drainage Results Labs CBC & Chem 7: 01/18/18 04:09 01/18/18 04:09 Assessment and Plan Plan This is a 72-year-old male patient with past medical history which includes diabetes mellitus type 2, obstructive sleep apnea, hypertension, hemochromatosis , chronic kidney disease stage III, osteoporosis, obesity with history of bariatric surgery, GERD and recurrent cellulitis of the left buttock. Patient presented to the emergency department for evaluation of, "redness, swelling and warmth," left buttock that started at 0200 01/16/18. Patient states that he had the same issue in September. He was treated with Bactrim and Keflex and the symptoms resolved. Patient was treated again for left buttock cellulitis in November 2017. US soft tissue left buttock noted diffuse edema in the left gluteal region, no organized fluid collection identified. Pt was initially on Zosyn and vancomycin following admission. Abx were changed to IV Clindamycin on 11/22. Pt had slow clinical improvement on the Clindamycin. Given that this was the patients second episode of cellulitis in this same area and with its proximity to his left hip prosthesis (placed in 2013) we consulted ID to give opinion of whether or not further evaluation in warranted to r/o a deeper nidus of infection regarding the hip prosthesis. ID agreed that further evaluation was warranted with Tagged WBC scan which was completed on 11/27/17 and noted no evidence to suggest osteomyelitis, mild soft tissue swelling over the lateral buttock and left hip region with no visualized abscess, and status post left hip arthroplasty. The case was discussed with ID and pt will be discharged on Keflex 500mg TID x 7 days and doxy 100mg BID x 7 days. Patient states he has a history of a left hip replacement. Patient denies any chest pain, shortness of breath, fevers, chills, N/V/D/C. Cellulitis left buttock. 3rd episode same location. WBC 21.5 on admission. improved. cellulitis improving. Hip CT 01/16/18 1. Subcutaneous edema and skin thickening noted as above. This can be seen with cellulitis. 2. Diverticulosis Patient was started on Vanco. random level 15 today discussed with ID. plan for conversion to probably zyvvox on dc. chlorhexadine bath. If reoccurs might then require iv abx for 4-6 weeks. would dc diflucan Diabetes mellitus type 2 - continue patient's home Glipizide - accuchecks ACHS with SSI. - diabetic diet Obstructive sleep apnea - Cont. to use home CPAP Hypertension - Continue home Diltiazem 300mg daily and lisinopril 40 mg daily GERD - Continue home pantoprazole Hemochromatosis Hx appears stable - Hgb 14.9 01/16 Chronic kidney disease stage III - Avoid nephrotoxic agents monitor labs Consult PT DVT prophylaxis with SCDs Progress Note: Quality VTE Deep Vein Thrombosis/Pulmonary Embolism Present on Admission: No
[2018-01-18] MEDS ORDERED: Vancomycin Inj 1,500 MG in Sodium Chlor 0.9% Inj 500 ML IV.SIG ONE (14:00)
[2018-01-19] MEDS: Insulin NovoLOG Aspart Correctional Sugar Inj SQ SCH ×4 (08:39→20:33)
[2018-01-19] MEDS: Enoxaparin Inj 40 MG/0.4 ML Syringe SQ SCH (09:11)
[2018-01-19] MEDS: Senna/Docusate Sodium 8.6/50 MG Tablet PO SCH ×2 (09:12→20:43)
[2018-01-19] MEDS: glipiZIDE 5 MG Tablet PO SCH ×2 (09:12→20:43)
[2018-01-19] MEDS: Lisinopril 20 MG Tablet PO SCH (09:12)
[2018-01-19] MEDS: dilTIAZem CD 300 MG Capsule PO SCH (09:12)
--- NOTE | 2018-01-19 10:08 | P.PNIM ---
Subjective Interval history: left buttock/leg feels better. pain better. 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 no tenderness. no fluctuance or drainage Results Labs CBC & Chem 7: 01/18/18 04:09 01/19/18 06:04 Assessment and Plan Plan This is a 72-year-old male patient with past medical history which includes diabetes mellitus type 2, obstructive sleep apnea, hypertension, hemochromatosis , chronic kidney disease stage III, osteoporosis, obesity with history of bariatric surgery, GERD and recurrent cellulitis of the left buttock. Patient presented to the emergency department for evaluation of, "redness, swelling and warmth," left buttock that started at 0200 01/16/18. Patient states that he had the same issue in September. He was treated with Bactrim and Keflex and the symptoms resolved. Patient was treated again for left buttock cellulitis in November 2017. US soft tissue left buttock noted diffuse edema in the left gluteal region, no organized fluid collection identified. Pt was initially on Zosyn and vancomycin following admission. Abx were changed to IV Clindamycin on 11/22. Pt had slow clinical improvement on the Clindamycin. Given that this was the patients second episode of cellulitis in this same area and with its proximity to his left hip prosthesis (placed in 2013) we consulted ID to give opinion of whether or not further evaluation in warranted to r/o a deeper nidus of infection regarding the hip prosthesis. ID agreed that further evaluation was warranted with Tagged WBC scan which was completed on 11/27/17 and noted no evidence to suggest osteomyelitis, mild soft tissue swelling over the lateral buttock and left hip region with no visualized abscess, and status post left hip arthroplasty. The case was discussed with ID and pt will be discharged on Keflex 500mg TID x 7 days and doxy 100mg BID x 7 days. Patient states he has a history of a left hip replacement. Patient denies any chest pain, shortness of breath, fevers, chills, N/V/D/C. Cellulitis left buttock. 3rd episode same location. WBC 21.5 on admission. improved. cellulitis improving. Hip CT 01/16/18 1. Subcutaneous edema and skin thickening noted as above. This can be seen with cellulitis. 2. Diverticulosis Patient was started on Vanco. random level 15 discussed with ID. plan for conversion to probably zyvvox on dc. chlorhexadine bath. If reoccurs might then require iv abx for 4-6 weeks. would dc diflucan ?dc 1-2 days. Diabetes mellitus type 2 - continue patient's home Glipizide - accuchecks ACHS with SSI. - diabetic diet Obstructive sleep apnea - Cont. to use home CPAP Hypertension - Continue home Diltiazem 300mg daily and lisinopril 40 mg daily GERD - Continue home pantoprazole Hemochromatosis Hx appears stable - Hgb 14.9 01/16 Chronic kidney disease stage III - Avoid nephrotoxic agents monitor labs Consult PT DVT prophylaxis with SCDs Progress Note: Quality VTE Deep Vein Thrombosis/Pulmonary Embolism Present on Admission: No
[2018-01-19] MEDS: Vancomycin Inj 1,500 MG in Sodium Chlor 0.9% Inj 500 ML IV.SIG SCH (14:33)
--- NOTE | 2018-01-19 18:21 | P.PNID ---
Subjective Remarks: ID x cover\ Pt known to me from precvious visits is a 71-year-old with diabetes, left hip replacement sp presents with 3 rd episode of recurrent left buttock cellulitis, CT and previous WBC* study failed to find connection with prosthesis All 3 episodes responded to gram positive coverage blood clx were negative and no fluid availbale for culture Improving No fevers No rash No diarrhea Antibiotics: Vanco IV Lines: Lines ok Past Medical History: reviewed Allergies/Adverse Reactions: Allergies adhesive Adverse Reaction (Severe, Verified 11/20/17 08:22) SKIN BECOMES IRRITATED AND SCARS Objective Vital Signs 01/18/18 20:00 01/19/18 00:00 01/19/18 04:00 Temperature 97.7 F 97.2 F L 97.6 F Pulse Rate 59 L 54 L 57 L Respiratory Rate 18 18 18 Blood Pressure 148/75 H 121/66 138/77 Pulse Oximetry 96 96 95 01/19/18 08:00 01/19/18 12:00 01/19/18 16:00 Temperature 97.6 F 97.6 F 98 F Pulse Rate 54 L 56 L 56 L Respiratory Rate 20 18 20 Blood Pressure 150/82 H 132/80 143/74 H Pulse Oximetry 100 98 100 Intake & Output 01/18/18 01/19/18 01/19/18 18:59 06:59 18:59 Intake Total 565 / 565 860 / 860 565 / 565 Balance 565 / 565 860 / 860 565 / 565 Weight 121.4 kg Intake: IV 565 / 565 565 / 565 Diflucan 100 mg Premix Bag 50 50 / 50 50 / 50 ML @ 50 mls/hr IV.SIG Q24H JIMENA Rx#:[id number] Vancomycin Inj 1,500 MG In NS 515 / 515 515 / 515 Inj 500 ML @ 250 mls/hr IV.SIG Q24H JIMENA Rx#:[id number] Oral 860 / 860 Other: # Voids 7 2 # Bowel Movements 1 01/16/18 05:40 Blood - Peripheral Aerobic Blood Culture - Preliminary No growth in 3 days 01/16/18 05:40 Blood - Peripheral Anaerobic Blood Culture - Preliminary No growth in 3 days 01/16/18 05:50 Blood - Peripheral Aerobic Blood Culture - Preliminary No growth in 3 days 01/16/18 05:50 Blood - Peripheral Anaerobic Blood Culture - Preliminary No growth in 3 days Lab - Hematology Results 01/18/18 04:09 WBC 10.8 RBC 3.99 L Hgb 12.6 L Hct 36.9 L MCV 92.3 MCH 31.5 MCHC 34.1 RDW 13.7 Plt Count 139 L MPV 8.9 Neut % (Auto) 72.9 H Lymph % (Auto) 16.7 Kimball % (Auto) 7.7 Eos % (Auto) 2.5 Baso % (Auto) 0.2 Neut # (Auto) 7.9 H Lymph # (Auto) 1.8 Kimball # (Auto) 0.8 Eos # (Auto) 0.3 Baso # (Auto) 0.0 WBC Differential . Differential Comment Auto diff final Lab - Chemistry Results 01/17/18 01/18/18 01/18/18 21:22 04:09 07:45 Sodium 143 Potassium 4.4 Chloride 112 H Carbon Dioxide 23.7 Anion Gap 7 BUN 36 H Creatinine 1.86 H Estimated GFR 36 L POC Glucose 172 H 95 Random Glucose 93 Calcium 8.0 L 01/18/18 01/18/18 01/18/18 11:58 16:45 19:50 Sodium Potassium Chloride Carbon Dioxide Anion Gap BUN Creatinine Estimated GFR POC Glucose 120 H 73 141 H Random Glucose Calcium 01/19/18 01/19/18 01/19/18 06:04 07:52 12:03 Sodium Potassium Chloride Carbon Dioxide Anion Gap BUN Creatinine 1.56 H Estimated GFR 44 L POC Glucose 102 108 Random Glucose Calcium 01/19/18 16:58 Sodium Potassium Chloride Carbon Dioxide Anion Gap BUN Creatinine Estimated GFR POC Glucose 118 H Random Glucose Calcium Imaging: ITS Impressions Hip CT 01/16/18 04:55 CONCLUSION: 1. Subcutaneous edema and skin thickening noted as above. This can be seen with cellulitis. 2. Diverticulosis. Physical Exam: GENERAL: Well-nourished well-developed, not in acute distress SKIN: Cool and dry, no generalized rash HEAD: Atraumatic. Normocephalic. No temporal or scalp tenderness. EYES: Pupils equal round and reactive. Scleral icterus. No injection or drainage. No petechia ENT: moist mucosae,no thrush NECK: Trachea midline. Supple, nontender, no meningeal signs. CARDIOVASCULAR: HS audible. RESPIRATORY: Clear to auscultation bilaterally. GASTROINTESTINAL: Abdomen soft nontender. Obese. MUSCULOSKELETAL: Left buttock area with mild induration, no tenderness and mild erythema involving area up to the iliac crest and down into his thigh and involving a part of his left buttock cheek. A marker has been used to demarcate this area. Marked improvement compared to the lines NEUROLOGICAL: Alert oriented 3. Nonfocal. Psych cooperative IV line sites ok. Assessment and Plan - Plan Recurrent, third episode of cellulitis involving the left buttock area including the site of prior surgery for prosthetic joint replacement. Diabetes mellitus type 2 Obstructive sleep apnea CKD, better GFR Recommendations: Continue vancomycin IV target trough 10-15 Follow creatinine and urine output If patient continues to improve on vancomycin IV he can be transitioned to oral agents such as Zyvox. MR janene fluconazole Case discussed with Dr. Chi.
[2018-01-20] MEDS: Insulin NovoLOG Aspart Correctional Sugar Inj SQ SCH ×4 (08:55→20:25)
[2018-01-20] MEDS: Lisinopril 20 MG Tablet PO SCH (08:56)
[2018-01-20] MEDS: Senna/Docusate Sodium 8.6/50 MG Tablet PO SCH ×2 (08:57→20:25)
[2018-01-20] MEDS: glipiZIDE 5 MG Tablet PO SCH ×2 (08:57→20:25)
[2018-01-20] MEDS: Enoxaparin Inj 40 MG/0.4 ML Syringe SQ SCH (08:57)
[2018-01-20] MEDS: dilTIAZem CD 300 MG Capsule PO SCH (08:57)
[2018-01-20] MEDS ORDERED: Gadobutrol PF 10 MMOL/10 ML Vial (for RAD) IV.SIG ONE (11:43)
[2018-01-20] MEDS ORDERED: Gadobutrol PF 2 MMOL/2 ML Vial (for RAD) IV.SIG ONE (11:49)
--- NOTE | 2018-01-20 12:35 | P.PNIM ---
Subjective Interval history: doing well left buttock/hip rash/pain much better. 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 no tenderness. no fluctuance or drainage Results Labs CBC & Chem 7: 01/18/18 04:09 01/20/18 06:45 Assessment and Plan Plan This is a 72-year-old male patient with past medical history which includes diabetes mellitus type 2, obstructive sleep apnea, hypertension, hemochromatosis , chronic kidney disease stage III, osteoporosis, obesity with history of bariatric surgery, GERD and recurrent cellulitis of the left buttock. Patient presented to the emergency department for evaluation of, "redness, swelling and warmth," left buttock that started at 0200 01/16/18. Patient states that he had the same issue in September. He was treated with Bactrim and Keflex and the symptoms resolved. Patient was treated again for left buttock cellulitis in November 2017. US soft tissue left buttock noted diffuse edema in the left gluteal region, no organized fluid collection identified. Pt was initially on Zosyn and vancomycin following admission. Abx were changed to IV Clindamycin on 11/22. Pt had slow clinical improvement on the Clindamycin. Given that this was the patients second episode of cellulitis in this same area and with its proximity to his left hip prosthesis (placed in 2013) we consulted ID to give opinion of whether or not further evaluation in warranted to r/o a deeper nidus of infection regarding the hip prosthesis. ID agreed that further evaluation was warranted with Tagged WBC scan which was completed on 11/27/17 and noted no evidence to suggest osteomyelitis, mild soft tissue swelling over the lateral buttock and left hip region with no visualized abscess, and status post left hip arthroplasty. The case was discussed with ID and pt will be discharged on Keflex 500mg TID x 7 days and doxy 100mg BID x 7 days. Patient states he has a history of a left hip replacement. Patient denies any chest pain, shortness of breath, fevers, chills, N/V/D/C. Cellulitis left buttock. 3rd episode same location. WBC 21.5 on admission. improved. cellulitis improving. Hip CT 01/16/18 1. Subcutaneous edema and skin thickening noted as above. This can be seen with cellulitis. 2. Diverticulosis Patient was started on Vanco. random level 15 discussed with ID. plan for conversion to probably zyvvox on dc. chlorhexadine bath. If reoccurs might then require iv abx for 4-6 weeks. would dc diflucan discussed with dr Sidhu on 01/19..MRI prior to dc to again try to exclude deeper tissue seeding or of the prosthetic. Diabetes mellitus type 2 - continue patient's home Glipizide - accuchecks ACHS with SSI. - diabetic diet Obstructive sleep apnea - Cont. to use home CPAP Hypertension - Continue home Diltiazem 300mg daily and lisinopril 40 mg daily GERD - Continue home pantoprazole Hemochromatosis Hx appears stable - Hgb 14.9 01/16 Chronic kidney disease stage III - Avoid nephrotoxic agents monitor labs Consult PT DVT prophylaxis with SCDs Progress Note: Quality VTE Deep Vein Thrombosis/Pulmonary Embolism Present on Admission: No
--- NOTE | 2018-01-20 13:51 | MR ---
EXAM DATE: 01/20/2018 11:51 AM EST AGE/SEX: 72 years / Male INDICATIONS: . Left hip pain with redness. CLINICAL DATA: This is the patient's subsequent encounter. Patient reports that signs and symptoms h ave been present for 4 - 6 days and indicates a pain score of 2/10. MEDICAL/SURGICAL HISTORY: Hypertension. Diabetes mellitus type II. Tonsillectomy. left hip rep lacement, bariatric surgery COMPARISON: [facility] – [place] HIP LEFT W/O CONTRAST, 01/16/2018. . TECHNIQUE: Multiplanar, multisequence MRI examination was performed without contrast and after th e intravenous administration of 12 ml Gadavist (gadobutrol) contrast as a single exam dose. FINDINGS: Extensive subcutaneous edema is noted over the lateral hip and gluteal musculature with no focal absc ess or hematoma. The patient is again noted be status post left hip arthroplasty with susceptibility artifact. The acetabular and femoral components are intact with no evidence of fracture or loosening. There is normal alignment. There is normal marrow signal throughout the pelvic bones. The hip musculature is symmetric and intact with no focal abnormality. The visualized portion of the pelvis are unremarkable. The sacrum and coccyx are within normal limits as well. CONCLUSION: 1. Extensive subcutaneous edema with no focal abscess. 2. Status post left hip arthroplasty with no marrow edema or underlying bony abnormality. Electronically signed by: Paulo Quinonez MD Board Certified Radiologist 01/20/2018 1:50 PM EST
[2018-01-20] MEDS: Vancomycin Inj 1,500 MG in Sodium Chlor 0.9% Inj 500 ML IV.SIG SCH (14:12)
[2018-01-21] MEDS: Enoxaparin Inj 40 MG/0.4 ML Syringe SQ SCH (08:41)
[2018-01-21] MEDS: Lisinopril 20 MG Tablet PO SCH (08:42)
[2018-01-21] MEDS: dilTIAZem CD 300 MG Capsule PO SCH (08:42)
[2018-01-21] MEDS: glipiZIDE 5 MG Tablet PO SCH (08:42)
[2018-01-21] MEDS: Senna/Docusate Sodium 8.6/50 MG Tablet PO SCH (08:42)
[2018-01-21] MEDS: Insulin NovoLOG Aspart Correctional Sugar Inj SQ SCH (08:44)
--- NOTE | 2018-01-21 10:09 | P.PNIM ---
Subjective Interval history: leg feels better wants to go home Physical Exam Vital signs: Last Vital Signs Temp 97.8 F 01/21/18 04:00 Pulse 54 L 01/21/18 04:00 Resp 16 01/21/18 04:00 BP 133/60 01/21/18 04:00 Pulse Ox 97 01/21/18 04:00 Narrative: induration and redness essentially resolved over left buttock and leg. no tenderness. no fluctuance or drainage Results Labs CBC & Chem 7: 01/18/18 04:09 01/20/18 06:45 Assessment and Plan Plan This is a 72-year-old male patient with past medical history which includes diabetes mellitus type 2, obstructive sleep apnea, hypertension, hemochromatosis , chronic kidney disease stage III, osteoporosis, obesity with history of bariatric surgery, GERD and recurrent cellulitis of the left buttock. Patient presented to the emergency department for evaluation of, "redness, swelling and warmth," left buttock that started at 0200 01/16/18. Patient states that he had the same issue in September. He was treated with Bactrim and Keflex and the symptoms resolved. Patient was treated again for left buttock cellulitis in November 2017. US soft tissue left buttock noted diffuse edema in the left gluteal region, no organized fluid collection identified. Pt was initially on Zosyn and vancomycin following admission. Abx were changed to IV Clindamycin on 11/22. Pt had slow clinical improvement on the Clindamycin. Given that this was the patients second episode of cellulitis in this same area and with its proximity to his left hip prosthesis (placed in 2013) we consulted ID to give opinion of whether or not further evaluation in warranted to r/o a deeper nidus of infection regarding the hip prosthesis. ID agreed that further evaluation was warranted with Tagged WBC scan which was completed on 11/27/17 and noted no evidence to suggest osteomyelitis, mild soft tissue swelling over the lateral buttock and left hip region with no visualized abscess, and status post left hip arthroplasty. The case was discussed with ID and pt will be discharged on Keflex 500mg TID x 7 days and doxy 100mg BID x 7 days. Patient states he has a history of a left hip replacement. Patient denies any chest pain, shortness of breath, fevers, chills, N/V/D/C. Cellulitis left buttock. 3rd episode same location. WBC 21.5 on admission. improved. cellulitis improving. Hip CT 01/16/18 1. Subcutaneous edema and skin thickening noted as above. This can be seen with cellulitis. 2. Diverticulosis Patient was started on Vanco. random level 15 discussed with ID. plan for conversion to probably zyvvox on dc. chlorhexadine bath. If reoccurs might then require iv abx for 4-6 weeks. would dc diflucan discussed with dr Sidhu on 01/19..MRI prior to dc to again try to exclude deeper tissue seeding or of the prosthetic. 01/21. mri showed some cellulitis change but no evidence for fistula/abscess or hip prosthetic involvement dc on zyvoxx and chlorhexadine bath. skin moisturizer. cbc next week. pcp recheck. I am calling pcp. Diabetes mellitus type 2 - continue patient's home Glipizide - accuchecks ACHS with SSI. - diabetic diet Obstructive sleep apnea - Cont. to use home CPAP Hypertension - Continue home Diltiazem 300mg daily and lisinopril 40 mg daily GERD - Continue home pantoprazole Hemochromatosis Hx appears stable - Hgb 14.9 01/16 Chronic kidney disease stage III - Avoid nephrotoxic agents monitor labs Consult PT DVT prophylaxis with SCDs Progress Note: Quality VTE Deep Vein Thrombosis/Pulmonary Embolism Present on Admission: No
[2018-01-21] MEDS ORDERED: Pharmacy Ordered Lab Info OTHER ONE (13:45)
== END 2018-01-21 10:54 | disposition home or self-care (01) ==
LOC: NEPE 04:09 → NEDA 07:10 → NEPGCP 09:26 → N04 17:10
PROVIDERS: ADMIT Hospitalist; ATTEND Hospitalist